=== PATIENT | male | born 1955 | race African-American/Black ===

== ENCOUNTER → 2018-11-27 | Day surgery (SDC) | payer MEDICARE, OTHER ==
[~2018-11-27] MED LIST: CEFAZOLIN 1 GM INJ; DEXTROSE 50% 50 ML SYRINGE; DIPHENHYDRAMINE 50 MG INJ IV; FENTAnyl 50 MCG/ML VIAL; FENTAnyl 50 MCG/ML VIAL IV; GELATIN SIZE 100 SPONGE; HEPARIN 1000 UNITS/ML 10 ML INJ; HYDROmorphONE 1 MG/5 ML IV SYRINGE IV; IPRATROPIUM (NEB) 0.5 MG/2.5 ML AMP HHN; LABETALOL HCL 20MG INJ IV; LEVALBUTEROL (NEB) 1.25 MG/0.5 ML AMP HHN; LIDOCAINE 1% (MPF) 30 ML INJ; METOCLOPRAMIDE 10 MG INJ; MIDAZOLAM 1 MG/ML 2 ML INJ; ONDANSETRON 4 MG INJ; ONDANSETRON 4 MG INJ IV; PHENYLephrine (100 MCG/ML) 10ML SYG; PROPOFOL 20 ML; ROPIVACAINE 0.5 % 30 ML VIAL; SEVOFLURANE 15 MIN; THROMBIN 5000 UNIT VIAL; hydrALAzine 20 MG INJ IV
[2018-11-27] MEDS: DEXTROSE 50% 50 ML SYRINGE IV (07:29)
[2018-11-27 07:34] LABS: ADD MAN DIFF? NO
[2018-11-27 07:35] LABS: BASOPHIL # 0.1 10^3/ul (0.0-0.1); EOSINOPHILS # 0.1 10^3/ul (0.0-0.5); EOSINOPHILS % 0.9 % (0.0-7.0); HEMATOCRIT 34.1 % (42.0-52.0); LYMPHOCYTES # 1.4 10^3/ul (0.8-2.9); LYMPHOCYTES % 23.4 % (15.0-51.0); MEAN CORPUSCULAR HEMOGLOBIN 30.6 pg (29.0-33.0); MEAN CORPUSCULAR HGB CONC 32.3 g/dl (32.0-37.0); MEAN PLATELET VOLUME 10.4 fl (7.4-10.4); MONOCYTE # 0.9 10^3/ul (0.3-0.9); MONOCYTES % 14.8 % (0.0-11.0); NEUTROPHIL # 3.5 10^3/ul (1.6-7.5); NEUTROPHILS % 59.6 % (39.0-77.0); PLATELET COUNT 282 10^3/UL (140-415); RED BLOOD COUNT 3.59 10^6/ul (4.70-6.10); RED CELL DISTRIBUTION WIDTH 13.7 % (11.5-14.5)
[2018-11-27 07:35] LABS: WHITE BLOOD COUNT 5.8 10^3/ul (4.8-10.8)
[2018-11-27] MEDS: HEPARIN 1000 UNITS/ML 10 ML INJ IRR (07:45)
[2018-11-27 07:53] LABS: ALANINE AMINOTRANSFERASE 13 IU/L (13-69); ALBUMIN 4.4 g/dl (3.3-4.9); ALBUMIN/GLOBULIN RATIO 1.12; ALKALINE PHOSPHATASE 118 IU/L (42-121); ANION GAP 11 (5-13); ASPARTATE AMINO TRANSFERASE 24 IU/L (15-46); BILIRUBIN,INDIRECT 0.2 mg/dl (0-1.1); BILIRUBIN,TOTAL 0.2 mg/dl (0.2-1.3); CARBON DIOXIDE 38 mmol/L (21-31); CHLORIDE 92 mmol/L (97-110); Estimated GFR 7 mL/min (>60); GLUCOSE 66 mg/dl (70-220); SODIUM 141 mmol/L (135-144); TOTAL PROTEIN 8.3 g/dl (6.1-8.1)
[2018-11-27 07:58] LABS: INR 0.95; PROTIME 12.8 Sec (11.9-14.9)
[2018-11-27 07:59] LABS: BLOOD UREA NITROGEN 51 mg/dl (7-20); CALCIUM 10.3 mg/dl (8.4-10.2); CREATININE 9.93 mg/dl (0.61-1.24); PARTIAL THROMBOPLASTIN TIME 27.5 Sec (23.0-35.0)
[2018-11-27] MEDS: THROMBIN 5000 UNIT VIAL TOP (09:40)
[2018-11-27] MEDS: GELATIN SIZE 100 SPONGE TOP (09:40)
== END | disposition home or self-care (01) ==
LOC: SDS 06:35
DX: T82.868A Thrombosis due to vascular prosthetic devices, implants and grafts, initial encounter (principal); Y84.1 Kidney dialysis as the cause of abnormal reaction of the patient, or of later complication, without mention of misadventure at the time of the procedure; I12.0 Hypertensive chronic kidney disease with stage 5 chronic kidney disease or end stage renal disease; N18.6 End stage renal disease; E11.9 Type 2 diabetes mellitus without complications
CPT/HCPCS: 36821; 71045; 80053; 82962; 85025; 85610; 85730; 93005

== ENCOUNTER 2019-05-04 20:30 | Inpatient (IN) | payer MEDICARE, OTHER ==
[2019-05-05 03:12] LABS: ADD MAN DIFF? NO
[2019-05-05] MEDS: SOD CHLORIDE 0.9% 500 ML IV (03:17)
[2019-05-05] MEDS: PIPER-TAZO 3.375 GM IV (PMX) 100 ML IVPB (03:17)
[2019-05-05 03:36] LABS: ALANINE AMINOTRANSFERASE 15 IU/L (13-69); ALBUMIN 4.5 g/dl (3.3-4.9); ALBUMIN/GLOBULIN RATIO 1.18; ALKALINE PHOSPHATASE 144 IU/L (42-121); ANION GAP 12 (5-13); ASPARTATE AMINO TRANSFERASE 22 IU/L (15-46); BASOPHIL # 0.1 10^3/ul (0.0-0.1); BASOPHILS % 0.7 % (0.0-2.0); BILIRUBIN,INDIRECT 0.5 mg/dl (0-1.1); BILIRUBIN,TOTAL 0.5 mg/dl (0.2-1.3); BLOOD UREA NITROGEN 51 mg/dl (7-20); CALCIUM 9.1 mg/dl (8.4-10.2); CHLORIDE 88 mmol/L (97-110); CREATININE 9.54 mg/dl (0.61-1.24); EOSINOPHILS # 0.1 10^3/ul (0.0-0.5); EOSINOPHILS % 1.6 % (0.0-7.0); Estimated GFR 7 mL/min (>60); GLUCOSE 211 mg/dl (70-220); HEMATOCRIT 32.5 % (42.0-52.0); LIPASE 245 U/L (23-300); LYMPHOCYTES # 1.8 10^3/ul (0.8-2.9); LYMPHOCYTES % 20.3 % (15.0-51.0); MEAN CORPUSCULAR HEMOGLOBIN 28.6 pg (29.0-33.0); MEAN CORPUSCULAR HGB CONC 30.8 g/dl (32.0-37.0); MEAN CORPUSCULAR VOLUME 92.9 fl (82.0-101.0); MEAN PLATELET VOLUME 10.7 fl (7.4-10.4); MONOCYTE # 1.2 10^3/ul (0.3-0.9); MONOCYTES % 13.4 % (0.0-11.0); NEUTROPHIL # 5.8 10^3/ul (1.6-7.5); NEUTROPHILS % 63.6 % (39.0-77.0); PLATELET COUNT 379 10^3/UL (140-415); POTASSIUM 5.3 mmol/L (3.5-5.1); RED CELL DISTRIBUTION WIDTH 17.2 % (11.5-14.5); SODIUM 140 mmol/L (135-144); TOTAL PROTEIN 8.3 g/dl (6.1-8.1)
[2019-05-05 03:46] LABS: CARBON DIOXIDE 40 mmol/L (21-31)
[2019-05-05] MEDS ORDERED: ONDANSETRON 4 MG INJ IV (04:30)
[2019-05-05] MEDS ORDERED: ACETAMINOPHEN 325 MG TAB PO ×2 (04:30→09:30)
[2019-05-05] MEDS ORDERED: VANCOMYCIN IV PER PHARMACY XX (09:30)
[2019-05-05] MEDS: CLOPIDOGREL 75 MG TAB PO (09:55)
[2019-05-05] MEDS: LEVOFLOXACIN 500 MG TAB PO (09:55)
[2019-05-05] MEDS: MULTIVIT/CA CARB/B CMPLX/FA TAB PO (09:55)
[2019-05-05] MEDS: ZINC SULFATE 220 MG CAP PO (09:55)
[2019-05-05] MEDS: ASPIRIN (EC) 81 MG TAB PO (09:55)
[2019-05-05] MEDS: AMLODIPINE 10 MG TAB PO (09:56)
[2019-05-05] MEDS ORDERED: SEVELAMER 800 MG TAB PO (11:30)
[2019-05-05] MEDS: VANCOMYCIN 1 GM (PMX) 250 ML IVPB (11:47)
[2019-05-05] MEDS: PAROXETINE 10 MG TAB PO (11:47)
[2019-05-05] MEDS: SEVELAMER CARBONATE 800 MG TABLET PO ×2 (11:47→17:49)
[2019-05-05] MEDS: INSULIN ASPART [NOVOLOG] 3 ML PEN SC ×5 (12:10→21:00)
[2019-05-05] MEDS: BACLOFEN 10 MG TAB PO ×2 (12:15→21:39)
[2019-05-05] MEDS ORDERED: GLUCOSE GEL 15 GRAM TUBE BUCCAL (13:00)
[2019-05-05] MEDS: PIPER-TAZO 2.25 GM (PMX) 50 ML IVPB ×2 (13:42→22:45)
[2019-05-05] MEDS ORDERED: INSULIN ASPART [NOVOLOG] 3 ML PEN SC ×2 (17:35→18:05)
[2019-05-05 18:55] LABS: HEPATITIS B SURFACE ANTIGEN NEGATIVE (NEGATIVE)
[2019-05-05] MEDS: EPOETIN ALFA-EPBX (ESRD) 4,000 UNIT/ML VIAL SC (19:02)
[2019-05-05 19:13] LABS: HEPATITIS B SURFACE ANTIBODY POSITIVE (NEGATIVE)
[2019-05-05] MEDS: ATORVASTATIN 80 MG TAB PO (21:39)
[2019-05-05] MEDS: MIRTAZAPINE 15 MG TAB PO (21:39)
[2019-05-05] MEDS: POVIDONE IODINE 10% 28.4 GM OINT TOP (21:53)
[2019-05-05] MEDS: INSULIN GLARGINE [LANTus] (100 UNITS/ML) SYG SC (22:11)
[2019-05-05] MEDS: DAKINS 0.0125%(1/40) 473 ML SOLUTION TP (22:45)
[2019-05-06] MEDS: INSULIN GLARGINE [LANTus] (100 UNITS/ML) SYG SC ×3 (00:15→23:44)
[2019-05-06] MEDS ORDERED: ACCU-CHEK XX (02:00)
[2019-05-06] MEDS: ACCU-CHEK XX (02:00)
[2019-05-06] MEDS: PIPER-TAZO 2.25 GM (PMX) 50 ML IVPB ×3 (05:42→22:44)
[2019-05-06] MEDS: INSULIN ASPART [NOVOLOG] 3 ML PEN SC ×7 (08:00→21:00)
[2019-05-06 08:10] LABS: ADD MAN DIFF? NO
[2019-05-06 08:17] LABS: WHITE BLOOD COUNT 10.3 10^3/ul (4.8-10.8)
[2019-05-06 08:17] LABS: BASOPHIL # 0.1 10^3/ul (0.0-0.1); BASOPHILS % 0.7 % (0.0-2.0); EOSINOPHILS # 0.1 10^3/ul (0.0-0.5); EOSINOPHILS % 0.5 % (0.0-7.0); HEMATOCRIT 26.7 % (42.0-52.0); HEMOGLOBIN 8.3 g/dl (14.0-18.0); LYMPHOCYTES # 1.2 10^3/ul (0.8-2.9); LYMPHOCYTES % 11.4 % (15.0-51.0); MEAN CORPUSCULAR HEMOGLOBIN 28.3 pg (29.0-33.0); MEAN CORPUSCULAR HGB CONC 31.1 g/dl (32.0-37.0); MEAN CORPUSCULAR VOLUME 91.1 fl (82.0-101.0); MEAN PLATELET VOLUME 10.7 fl (7.4-10.4); MONOCYTE # 0.8 10^3/ul (0.3-0.9); MONOCYTES % 8.2 % (0.0-11.0); NEUTROPHIL # 8.1 10^3/ul (1.6-7.5); NEUTROPHILS % 78.8 % (39.0-77.0); PLATELET COUNT 315 10^3/UL (140-415); RED BLOOD COUNT 2.93 10^6/ul (4.70-6.10)
[2019-05-06 08:36] LABS: ANION GAP 13 (5-13); BLOOD UREA NITROGEN 69 mg/dl (7-20); CALCIUM 8.5 mg/dl (8.4-10.2); CARBON DIOXIDE 34 mmol/L (21-31); CHLORIDE 94 mmol/L (97-110); CREATININE 10.98 mg/dl (0.61-1.24); Estimated GFR 6 mL/min (>60); POTASSIUM 5.5 mmol/L (3.5-5.1); SODIUM 141 mmol/L (135-144)
[2019-05-06 08:58] LABS: GLUCOSE 33 mg/dl (70-220)
[2019-05-06] MEDS: AMLODIPINE 10 MG TAB PO (09:00)
[2019-05-06] MEDS ORDERED: MULTIVIT/CA CARB/B CMPLX/FA TAB PO (09:00)
[2019-05-06] MEDS: ASPIRIN (EC) 81 MG TAB PO (09:15)
[2019-05-06] MEDS: ZINC SULFATE 220 MG CAP PO (09:15)
[2019-05-06] MEDS: BACLOFEN 10 MG TAB PO ×4 (09:15→21:01)
[2019-05-06] MEDS: CLOPIDOGREL 75 MG TAB PO (09:15)
[2019-05-06] MEDS: SEVELAMER CARBONATE 800 MG TABLET PO ×3 (09:15→17:26)
[2019-05-06] MEDS: DAKINS 0.0125%(1/40) 473 ML SOLUTION TP ×2 (09:16→22:49)
[2019-05-06] MEDS: PAROXETINE 10 MG TAB PO (09:16)
[2019-05-06] MEDS: MULTIVIT/CA CARB/B CMPLX/FA TAB PO (09:16)
[2019-05-06] MEDS: POVIDONE IODINE 10% 28.4 GM OINT TOP ×2 (09:16→22:50)
[2019-05-06] MEDS: EUCERIN 113 GM CR TOP (12:02)
[2019-05-06] MEDS: HYDROCODONE/APAP (5/325) TAB PO ×2 (13:10→21:50)
[2019-05-06 15:16] LABS: ADD MAN DIFF? NO
[2019-05-06 15:21] LABS: BASOPHIL # 0.1 10^3/ul (0.0-0.1); BASOPHILS % 0.8 % (0.0-2.0); EOSINOPHILS # 0.1 10^3/ul (0.0-0.5); EOSINOPHILS % 0.7 % (0.0-7.0); HEMATOCRIT 27.1 % (42.0-52.0); HEMOGLOBIN 8.4 g/dl (14.0-18.0); LYMPHOCYTES % 11.2 % (15.0-51.0); MEAN CORPUSCULAR HEMOGLOBIN 28.9 pg (29.0-33.0); MEAN CORPUSCULAR VOLUME 93.1 fl (82.0-101.0); MEAN PLATELET VOLUME 10.2 fl (7.4-10.4); MONOCYTE # 0.7 10^3/ul (0.3-0.9); MONOCYTES % 8.3 % (0.0-11.0); NEUTROPHIL # 6.7 10^3/ul (1.6-7.5); NEUTROPHILS % 78.5 % (39.0-77.0); PLATELET COUNT 317 10^3/UL (140-415); RED BLOOD COUNT 2.91 10^6/ul (4.70-6.10); RED CELL DISTRIBUTION WIDTH 17.1 % (11.5-14.5)
[2019-05-06 15:21] LABS: WHITE BLOOD COUNT 8.5 10^3/ul (4.8-10.8)
[2019-05-06 15:38] LABS: INR 1.11; PROTIME 14.4 Sec (11.9-14.9); PT RATIO 1.1
[2019-05-06 15:39] LABS: PARTIAL THROMBOPLASTIN TIME 29.6 Sec (23.0-35.0)
[2019-05-06 15:43] LABS: ALANINE AMINOTRANSFERASE 14 IU/L (13-69); ALBUMIN 3.7 g/dl (3.3-4.9); ALBUMIN/GLOBULIN RATIO 1.08; ALKALINE PHOSPHATASE 87 IU/L (42-121); ANION GAP 9 (5-13); ASPARTATE AMINO TRANSFERASE 27 IU/L (15-46); BILIRUBIN,INDIRECT 0.7 mg/dl (0-1.1); BILIRUBIN,TOTAL 0.7 mg/dl (0.2-1.3); BLOOD UREA NITROGEN 23 mg/dl (7-20); CALCIUM 8.5 mg/dl (8.4-10.2); CARBON DIOXIDE 33 mmol/L (21-31); CHLORIDE 99 mmol/L (97-110); CREATININE 4.79 mg/dl (0.61-1.24); Estimated GFR 15 mL/min (>60); GLUCOSE 94 mg/dl (70-220); POTASSIUM 4.4 mmol/L (3.5-5.1); SODIUM 141 mmol/L (135-144); TOTAL PROTEIN 7.1 g/dl (6.1-8.1)
[2019-05-06] MEDS: GLUCOSE GEL 15 GRAM TUBE PO ×5 (20:15→23:35)
[2019-05-06 20:45] LABS: TROPONIN-I < 0.012 ng/ml (0.000-0.120)
[2019-05-06] MEDS ORDERED: HEPARIN 5,000 UNIT/1 ML VIAL SC (21:00)
[2019-05-06] MEDS: MIRTAZAPINE 15 MG TAB PO (21:01)
[2019-05-06] MEDS: ATORVASTATIN 80 MG TAB PO (21:01)
[2019-05-06] MEDS: hydrALAzine 20 MG INJ IV (21:06)
[2019-05-06 22:02] LABS: GLUCOSE 45 mg/dl (70-220)
[2019-05-06] MEDS: DEXTROSE 5%-0.9% NACL 1,000 ML IV (23:46)
[2019-05-07 01:39] LABS: GLUCOSE 78 mg/dl (70-220)
[2019-05-07 01:54] LABS: TROPONIN-I < 0.012 ng/ml (0.000-0.120)
[2019-05-07] MEDS: ACCU-CHEK XX (02:00)
[2019-05-07 05:35] LABS: ADD MAN DIFF? NO
[2019-05-07 05:41] LABS: BASOPHIL # 0.1 10^3/ul (0.0-0.1); BASOPHILS % 0.6 % (0.0-2.0); EOSINOPHILS % 0.3 % (0.0-7.0); HEMATOCRIT 29.7 % (42.0-52.0); HEMOGLOBIN 9.2 g/dl (14.0-18.0); LYMPHOCYTES % 9.2 % (15.0-51.0); MEAN CORPUSCULAR HEMOGLOBIN 28.8 pg (29.0-33.0); MEAN CORPUSCULAR VOLUME 92.8 fl (82.0-101.0); MEAN PLATELET VOLUME 10.5 fl (7.4-10.4); MONOCYTE # 0.9 10^3/ul (0.3-0.9); NEUTROPHIL # 8.7 10^3/ul (1.6-7.5); NEUTROPHILS % 81.2 % (39.0-77.0); PLATELET COUNT 344 10^3/UL (140-415); RED CELL DISTRIBUTION WIDTH 17.1 % (11.5-14.5)
[2019-05-07 05:41] LABS: WHITE BLOOD COUNT 10.7 10^3/ul (4.8-10.8)
[2019-05-07] MEDS: PIPER-TAZO 2.25 GM (PMX) 50 ML IVPB (05:47)
[2019-05-07 05:58] LABS: ANION GAP 10 (5-13); BLOOD UREA NITROGEN 39 mg/dl (7-20); CALCIUM 8.6 mg/dl (8.4-10.2); CARBON DIOXIDE 33 mmol/L (21-31); CHLORIDE 96 mmol/L (97-110); CREATININE 7.09 mg/dl (0.61-1.24); Estimated GFR 10 mL/min (>60); GLUCOSE 120 mg/dl (70-220); POTASSIUM 5.5 mmol/L (3.5-5.1); SODIUM 139 mmol/L (135-144)
[2019-05-07 06:08] LABS: VANCOMYCIN,RANDOM 8.4 ug/ml
[2019-05-07 06:10] LABS: CHOLESTEROL 89 mg/dl (100-200)
[2019-05-07 06:10] LABS: CHOL/HDL RATIO 2.1 RATIO; HDL CHOLESTEROL 42 mg/dl (30-78); LDL CHOLESTEROL,CALCULATED 38 mg/dl; TRIGLYCERIDES 46 mg/dl (0-149)
[2019-05-07 06:16] LABS: TROPONIN-I < 0.012 ng/ml (0.000-0.120)
[2019-05-07] MEDS: SEVELAMER CARBONATE 800 MG TABLET PO ×3 (07:35→17:35)
[2019-05-07] MEDS: INSULIN ASPART [NOVOLOG] 3 ML PEN SC ×7 (07:35→20:56)
[2019-05-07] MEDS: LEVOFLOXACIN 500 MG TAB PO (08:16)
[2019-05-07] MEDS: ZINC SULFATE 220 MG CAP PO ×2 (09:00→12:59)
[2019-05-07] MEDS: MULTIVIT/CA CARB/B CMPLX/FA TAB PO ×2 (09:00→12:59)
[2019-05-07] MEDS: BACLOFEN 10 MG TAB PO ×3 (09:01→20:57)
[2019-05-07] MEDS: CLOPIDOGREL 75 MG TAB PO (09:01)
[2019-05-07] MEDS: AMLODIPINE 10 MG TAB PO (09:01)
[2019-05-07] MEDS: ASPIRIN (EC) 81 MG TAB PO (09:01)
[2019-05-07] MEDS: PAROXETINE 10 MG TAB PO (09:01)
[2019-05-07] MEDS: DAKINS 0.0125%(1/40) 473 ML SOLUTION TP ×2 (10:18→21:03)
[2019-05-07] MEDS: POVIDONE IODINE 10% 28.4 GM OINT TOP ×2 (10:18→21:04)
[2019-05-07] MEDS: VANCOMYCIN 1 GM 250 ML IVPB (11:39)
[2019-05-07] MEDS: EUCERIN 113 GM CR TOP (11:39)
[2019-05-07] MEDS: EPOETIN ALFA-EPBX (ESRD) 4,000 UNIT/ML VIAL SC (17:31)
[2019-05-07] MEDS: HYDROCODONE/APAP (5/325) TAB PO (18:00)
[2019-05-07] MEDS: MIRTAZAPINE 15 MG TAB PO (20:57)
[2019-05-07] MEDS: INSULIN GLARGINE [LANTus] (100 UNITS/ML) SYG SC (20:57)
[2019-05-07] MEDS: ATORVASTATIN 80 MG TAB PO (20:57)
[2019-05-07] MEDS: METOPROLOL 25 MG TAB PO (20:58)
[2019-05-07] MEDS: DEXTROSE 5%-0.9% NACL 1,000 ML IV (22:24)
[2019-05-08] MEDS: ACCU-CHEK XX (02:00)
[2019-05-08] MEDS: hydrALAzine 20 MG INJ IV (03:13)
[2019-05-08 06:10] LABS: ADD MAN DIFF? NO
[2019-05-08 06:23] LABS: WHITE BLOOD COUNT 9.1 10^3/ul (4.8-10.8)
[2019-05-08 06:23] LABS: BASOPHIL # 0.1 10^3/ul (0.0-0.1); BASOPHILS % 1.2 % (0.0-2.0); EOSINOPHILS # 0.1 10^3/ul (0.0-0.5); EOSINOPHILS % 1.2 % (0.0-7.0); HEMATOCRIT 30.4 % (42.0-52.0); HEMOGLOBIN 9.2 g/dl (14.0-18.0); LYMPHOCYTES # 1.3 10^3/ul (0.8-2.9); LYMPHOCYTES % 14.7 % (15.0-51.0); MEAN CORPUSCULAR HEMOGLOBIN 28.1 pg (29.0-33.0); MEAN CORPUSCULAR HGB CONC 30.3 g/dl (32.0-37.0); MEAN PLATELET VOLUME 10.3 fl (7.4-10.4); MONOCYTE # 1.2 10^3/ul (0.3-0.9); MONOCYTES % 13.2 % (0.0-11.0); NEUTROPHIL # 6.3 10^3/ul (1.6-7.5); NEUTROPHILS % 69.4 % (39.0-77.0); PLATELET COUNT 297 10^3/UL (140-415); RED BLOOD COUNT 3.27 10^6/ul (4.70-6.10); RED CELL DISTRIBUTION WIDTH 17.1 % (11.5-14.5)
[2019-05-08 07:18] LABS: ANION GAP 9 (5-13); BLOOD UREA NITROGEN 22 mg/dl (7-20); CALCIUM 8.7 mg/dl (8.4-10.2); CARBON DIOXIDE 30 mmol/L (21-31); CHLORIDE 100 mmol/L (97-110); CREATININE 5.52 mg/dl (0.61-1.24); Estimated GFR 13 mL/min (>60); GLUCOSE 121 mg/dl (70-220); POTASSIUM 5.5 mmol/L (3.5-5.1); SODIUM 139 mmol/L (135-144)
[2019-05-08] MEDS: INSULIN ASPART [NOVOLOG] 3 ML PEN SC ×7 (08:06→21:00)
[2019-05-08] MEDS: SEVELAMER CARBONATE 800 MG TABLET PO ×3 (08:07→17:33)
[2019-05-08] MEDS: METOPROLOL 25 MG TAB PO ×2 (08:26→21:29)
[2019-05-08] MEDS: MULTIVIT/CA CARB/B CMPLX/FA TAB PO (08:27)
[2019-05-08] MEDS: PAROXETINE 10 MG TAB PO (08:27)
[2019-05-08] MEDS: BACLOFEN 10 MG TAB PO ×3 (08:27→21:28)
[2019-05-08] MEDS: ZINC SULFATE 220 MG CAP PO (08:27)
[2019-05-08] MEDS: CLOPIDOGREL 75 MG TAB PO (08:27)
[2019-05-08] MEDS: ASPIRIN (EC) 81 MG TAB PO (08:27)
[2019-05-08] MEDS: AMLODIPINE 10 MG TAB PO (08:27)
[2019-05-08] MEDS: EUCERIN 113 GM CR TOP (08:35)
[2019-05-08] MEDS: DAKINS 0.0125%(1/40) 473 ML SOLUTION TP ×2 (08:36→21:30)
[2019-05-08] MEDS: POVIDONE IODINE 10% 28.4 GM OINT TOP ×2 (08:36→21:29)
[2019-05-08] MEDS: LISINOPRIL 20 MG TAB PO (08:39)
[2019-05-08] MEDS: DEXTROSE 5%-0.45% NACL 1,000 ML IV (13:41)
[2019-05-08] MEDS: ONDANSETRON 4 MG INJ IV (15:23)
[2019-05-08 17:19] LABS: ADD MAN DIFF? NO
[2019-05-08 17:22] LABS: WHITE BLOOD COUNT 9.1 10^3/ul (4.8-10.8)
[2019-05-08 17:22] LABS: BASOPHIL # 0.1 10^3/ul (0.0-0.1); BASOPHILS % 1.1 % (0.0-2.0); EOSINOPHILS % 0.3 % (0.0-7.0); HEMATOCRIT 26.3 % (42.0-52.0); HEMOGLOBIN 8.2 g/dl (14.0-18.0); LYMPHOCYTES # 0.8 10^3/ul (0.8-2.9); LYMPHOCYTES % 9.2 % (15.0-51.0); MEAN CORPUSCULAR HEMOGLOBIN 28.8 pg (29.0-33.0); MEAN CORPUSCULAR HGB CONC 31.2 g/dl (32.0-37.0); MEAN CORPUSCULAR VOLUME 92.3 fl (82.0-101.0); MEAN PLATELET VOLUME 9.6 fl (7.4-10.4); MONOCYTE # 0.8 10^3/ul (0.3-0.9); MONOCYTES % 8.4 % (0.0-11.0); NEUTROPHIL # 7.3 10^3/ul (1.6-7.5); NEUTROPHILS % 80.7 % (39.0-77.0); PLATELET COUNT 282 10^3/UL (140-415); RED BLOOD COUNT 2.85 10^6/ul (4.70-6.10); RED CELL DISTRIBUTION WIDTH 16.7 % (11.5-14.5)
[2019-05-08 17:53] LABS: TROPONIN-I < 0.012 ng/ml (0.000-0.120)
[2019-05-08 19:03] LABS: ALANINE AMINOTRANSFERASE 30 IU/L (13-69); ALBUMIN 3.1 g/dl (3.3-4.9); ALBUMIN/GLOBULIN RATIO 1.03; ALKALINE PHOSPHATASE 89 IU/L (42-121); ANION GAP 10 (5-13); ASPARTATE AMINO TRANSFERASE 17 IU/L (15-46); BILIRUBIN,INDIRECT 0.5 mg/dl (0-1.1); BILIRUBIN,TOTAL 0.5 mg/dl (0.2-1.3); BLOOD UREA NITROGEN 20 mg/dl (7-20); CALCIUM 8.5 mg/dl (8.4-10.2); CARBON DIOXIDE 28 mmol/L (21-31); CHLORIDE 101 mmol/L (97-110); CREATININE 4.86 mg/dl (0.61-1.24); Estimated GFR 15 mL/min (>60); GLUCOSE 166 mg/dl (70-220); POTASSIUM 4.4 mmol/L (3.5-5.1); SODIUM 139 mmol/L (135-144); TOTAL PROTEIN 6.1 g/dl (6.1-8.1)
[2019-05-08] MEDS: MIRTAZAPINE 15 MG TAB PO (21:28)
[2019-05-08] MEDS: ATORVASTATIN 80 MG TAB PO (21:28)
[2019-05-08] MEDS: INSULIN GLARGINE [LANTus] (100 UNITS/ML) SYG SC (22:31)
[2019-05-08 23:14] LABS: LACTIC ACID 1.5 mmol/L (0.5-2.0)
[2019-05-09] MEDS: HYDROCODONE/APAP (5/325) TAB PO
[2019-05-09] MEDS: ACCU-CHEK XX ×3 (02:00→21:45)
[2019-05-09 06:10] LABS: ADD MAN DIFF? NO
[2019-05-09 06:32] LABS: BASOPHIL # 0.1 10^3/ul (0.0-0.1); BASOPHILS % 1.5 % (0.0-2.0); EOSINOPHILS # 0.1 10^3/ul (0.0-0.5); EOSINOPHILS % 1.1 % (0.0-7.0); HEMATOCRIT 28.2 % (42.0-52.0); HEMOGLOBIN 8.7 g/dl (14.0-18.0); LYMPHOCYTES % 14.1 % (15.0-51.0); MEAN CORPUSCULAR HEMOGLOBIN 28.3 pg (29.0-33.0); MEAN CORPUSCULAR HGB CONC 30.9 g/dl (32.0-37.0); MEAN CORPUSCULAR VOLUME 91.9 fl (82.0-101.0); MEAN PLATELET VOLUME 10.5 fl (7.4-10.4); NEUTROPHIL # 5.2 10^3/ul (1.6-7.5); NEUTROPHILS % 69.9 % (39.0-77.0); PLATELET COUNT 310 10^3/UL (140-415); RED BLOOD COUNT 3.07 10^6/ul (4.70-6.10); RED CELL DISTRIBUTION WIDTH 16.8 % (11.5-14.5)
[2019-05-09 06:32] LABS: WHITE BLOOD COUNT 7.4 10^3/ul (4.8-10.8)
[2019-05-09 06:52] LABS: ANION GAP 6 (5-13); BLOOD UREA NITROGEN 17 mg/dl (7-20); CALCIUM 8.6 mg/dl (8.4-10.2); CARBON DIOXIDE 32 mmol/L (21-31); CHLORIDE 100 mmol/L (97-110); Estimated GFR 15 mL/min (>60); POTASSIUM 4.3 mmol/L (3.5-5.1); SODIUM 138 mmol/L (135-144)
[2019-05-09 07:05] LABS: GLUCOSE 38 mg/dl (70-220)
[2019-05-09 07:07] LABS: CHOL/HDL RATIO 2.1 RATIO; HDL CHOLESTEROL 39 mg/dl (30-78); LDL CHOLESTEROL,CALCULATED 39 mg/dl; TRIGLYCERIDES 37 mg/dl (0-149)
[2019-05-09 07:07] LABS: CHOLESTEROL 85 mg/dl (100-200)
[2019-05-09] MEDS: DEXTROSE 50% 50 ML SYRINGE IV (07:09)
[2019-05-09] MEDS: INSULIN ASPART [NOVOLOG] 3 ML PEN SC ×6 (08:15→21:00)
[2019-05-09] MEDS: SEVELAMER CARBONATE 800 MG TABLET PO ×3 (08:40→17:02)
[2019-05-09] MEDS: LEVOFLOXACIN 500 MG TAB PO (08:40)
[2019-05-09] MEDS: CLOPIDOGREL 75 MG TAB PO (08:40)
[2019-05-09] MEDS: ZINC SULFATE 220 MG CAP PO (08:40)
[2019-05-09] MEDS: BACLOFEN 10 MG TAB PO ×3 (08:41→21:39)
[2019-05-09] MEDS: PAROXETINE 10 MG TAB PO (08:41)
[2019-05-09] MEDS: ASPIRIN (EC) 81 MG TAB PO (08:41)
[2019-05-09] MEDS: METOPROLOL 25 MG TAB PO (08:41)
[2019-05-09] MEDS: AMLODIPINE 10 MG TAB PO (08:41)
[2019-05-09] MEDS: MULTIVIT/CA CARB/B CMPLX/FA TAB PO (08:41)
[2019-05-09] MEDS: EUCERIN 113 GM CR TOP (08:42)
[2019-05-09] MEDS: LISINOPRIL 20 MG TAB PO (08:43)
[2019-05-09] MEDS: POVIDONE IODINE 10% 28.4 GM OINT TOP ×2 (08:43→21:45)
[2019-05-09] MEDS: DAKINS 0.0125%(1/40) 473 ML SOLUTION TP ×2 (08:44→21:45)
[2019-05-09] MEDS: DEXTROSE 5%-0.45% NACL 1,000 ML IV (08:46)
[2019-05-09] MEDS: LINAGLIPTIN 5 MG TABLET PO (15:26)
[2019-05-09] MEDS: MIRTAZAPINE 15 MG TAB PO (21:39)
[2019-05-09] MEDS: ATORVASTATIN 80 MG TAB PO (21:39)
[2019-05-09] MEDS: METOPROLOL 50 MG TAB PO (21:40)
[2019-05-09] MEDS: BROMOCRIPTINE 2.5 MG TAB PO (21:48)
[2019-05-09] MEDS: INSULIN GLARGINE [LANTus] (100 UNITS/ML) SYG SC (21:59)
[2019-05-10] MEDS: ACCU-CHEK XX ×7 (02:00→20:35)
[2019-05-10] MEDS: ONDANSETRON 4 MG INJ IV (05:05)
[2019-05-10 06:56] LABS: VANCOMYCIN,RANDOM 12.3 ug/ml
[2019-05-10] MEDS: DEXTROSE 5%-0.45% NACL 1,000 ML IV (07:00)
[2019-05-10] MEDS: SEVELAMER CARBONATE 800 MG TABLET PO ×3 (08:00→16:04)
[2019-05-10] MEDS: AMLODIPINE 5 MG TAB PO (08:07)
[2019-05-10] MEDS: MULTIVIT/CA CARB/B CMPLX/FA TAB PO (08:07)
[2019-05-10] MEDS: METOPROLOL 50 MG TAB PO ×2 (08:07→20:27)
[2019-05-10] MEDS: BACLOFEN 10 MG TAB PO ×3 (08:07→20:26)
[2019-05-10] MEDS: PAROXETINE 10 MG TAB PO (08:07)
[2019-05-10] MEDS: LISINOPRIL 20 MG TAB PO (08:07)
[2019-05-10] MEDS: ASPIRIN (EC) 81 MG TAB PO (08:07)
[2019-05-10] MEDS: LINAGLIPTIN 5 MG TABLET PO (08:07)
[2019-05-10] MEDS: CLOPIDOGREL 75 MG TAB PO (08:07)
[2019-05-10] MEDS: ZINC SULFATE 220 MG CAP PO (08:08)
[2019-05-10] MEDS: EUCERIN 113 GM CR TOP (08:09)
[2019-05-10] MEDS: POVIDONE IODINE 10% 28.4 GM OINT TOP ×2 (08:09→20:33)
[2019-05-10] MEDS: DAKINS 0.0125%(1/40) 473 ML SOLUTION TP ×2 (08:09→20:27)
[2019-05-10] MEDS: INSULIN ASPART [NOVOLOG] 3 ML PEN SC ×4 (08:11→21:00)
[2019-05-10] MEDS: VANCOMYCIN 1 GM 250 ML IVPB (11:53)
[2019-05-10] MEDS: EPOETIN ALFA-EPBX (ESRD) 4,000 UNIT/ML VIAL SC (16:05)
[2019-05-10] MEDS: MIRTAZAPINE 15 MG TAB PO (20:26)
[2019-05-10] MEDS: BROMOCRIPTINE 2.5 MG TAB PO (20:26)
[2019-05-10] MEDS: ATORVASTATIN 80 MG TAB PO (20:26)
[2019-05-10] MEDS: INSULIN GLARGINE [LANTus] (100 UNITS/ML) SYG SC (21:14)
[2019-05-11] MEDS: DEXTROSE 5%-0.45% NACL 1,000 ML IV (01:30)
[2019-05-11] MEDS: ACCU-CHEK XX ×7 (02:00→20:22)
[2019-05-11 05:50] LABS: ADD MAN DIFF? NO
[2019-05-11 05:55] LABS: BASOPHIL # 0.1 10^3/ul (0.0-0.1); BASOPHILS % 1.8 % (0.0-2.0); EOSINOPHILS # 0.1 10^3/ul (0.0-0.5); HEMATOCRIT 26.4 % (42.0-52.0); HEMOGLOBIN 8.1 g/dl (14.0-18.0); LYMPHOCYTES # 0.9 10^3/ul (0.8-2.9); LYMPHOCYTES % 14.7 % (15.0-51.0); MEAN CORPUSCULAR HEMOGLOBIN 28.3 pg (29.0-33.0); MEAN CORPUSCULAR HGB CONC 30.7 g/dl (32.0-37.0); MEAN CORPUSCULAR VOLUME 92.3 fl (82.0-101.0); MEAN PLATELET VOLUME 10.5 fl (7.4-10.4); MONOCYTES % 16.5 % (0.0-11.0); NEUTROPHILS % 65.8 % (39.0-77.0); PLATELET COUNT 288 10^3/UL (140-415); RED BLOOD COUNT 2.86 10^6/ul (4.70-6.10); RED CELL DISTRIBUTION WIDTH 17.1 % (11.5-14.5)
[2019-05-11 05:59] LABS: ANION GAP 8 (5-13); BLOOD UREA NITROGEN 17 mg/dl (7-20); CALCIUM 8.1 mg/dl (8.4-10.2); CARBON DIOXIDE 30 mmol/L (21-31); CHLORIDE 100 mmol/L (97-110); CREATININE 5.34 mg/dl (0.61-1.24); Estimated GFR 13 mL/min (>60); GLUCOSE 209 mg/dl (70-220); POTASSIUM 4.4 mmol/L (3.5-5.1); SODIUM 138 mmol/L (135-144)
[2019-05-11] MEDS: INSULIN ASPART [NOVOLOG] 3 ML PEN SC ×4 (08:29→20:23)
[2019-05-11] MEDS: ASPIRIN (EC) 81 MG TAB PO (08:42)
[2019-05-11] MEDS: CLOPIDOGREL 75 MG TAB PO (08:42)
[2019-05-11] MEDS: AMLODIPINE 5 MG TAB PO (08:42)
[2019-05-11] MEDS: MULTIVIT/CA CARB/B CMPLX/FA TAB PO (08:42)
[2019-05-11] MEDS: SEVELAMER CARBONATE 800 MG TABLET PO ×3 (08:42→17:18)
[2019-05-11] MEDS: METOPROLOL 50 MG TAB PO ×2 (08:43→20:22)
[2019-05-11] MEDS: BACLOFEN 10 MG TAB PO ×3 (08:43→20:22)
[2019-05-11] MEDS: ZINC SULFATE 220 MG CAP PO (08:43)
[2019-05-11] MEDS: LINAGLIPTIN 5 MG TABLET PO (08:43)
[2019-05-11] MEDS: LISINOPRIL 20 MG TAB PO (08:43)
[2019-05-11] MEDS: LEVOFLOXACIN 500 MG TAB PO (08:43)
[2019-05-11] MEDS: PAROXETINE 10 MG TAB PO (08:43)
[2019-05-11] MEDS: DAKINS 0.0125%(1/40) 473 ML SOLUTION TP ×2 (08:44→20:23)
[2019-05-11] MEDS: EUCERIN 113 GM CR TOP (08:44)
[2019-05-11] MEDS: POVIDONE IODINE 10% 28.4 GM OINT TOP ×2 (08:44→20:23)
[2019-05-11] MEDS: MIRTAZAPINE 15 MG TAB PO (20:22)
[2019-05-11] MEDS: ATORVASTATIN 80 MG TAB PO (20:22)
[2019-05-11] MEDS: BROMOCRIPTINE 2.5 MG TAB PO (20:22)
[2019-05-11] MEDS: INSULIN GLARGINE [LANTus] (100 UNITS/ML) SYG SC (20:35)
[2019-05-12] MEDS: ACCU-CHEK XX ×7 (02:00→20:00)
[2019-05-12 06:22] LABS: ADD MAN DIFF? NO
[2019-05-12 06:37] LABS: BASOPHIL # 0.1 10^3/ul (0.0-0.1); BASOPHILS % 1.1 % (0.0-2.0); EOSINOPHILS # 0.1 10^3/ul (0.0-0.5); EOSINOPHILS % 1.1 % (0.0-7.0); HEMATOCRIT 24.7 % (42.0-52.0); HEMOGLOBIN 7.8 g/dl (14.0-18.0); LYMPHOCYTES # 0.9 10^3/ul (0.8-2.9); LYMPHOCYTES % 13.2 % (15.0-51.0); MEAN CORPUSCULAR HEMOGLOBIN 29.2 pg (29.0-33.0); MEAN CORPUSCULAR HGB CONC 31.6 g/dl (32.0-37.0); MEAN CORPUSCULAR VOLUME 92.5 fl (82.0-101.0); MEAN PLATELET VOLUME 10.8 fl (7.4-10.4); MONOCYTES % 15.8 % (0.0-11.0); NEUTROPHIL # 4.4 10^3/ul (1.6-7.5); NEUTROPHILS % 68.6 % (39.0-77.0); PLATELET COUNT 282 10^3/UL (140-415); RED BLOOD COUNT 2.67 10^6/ul (4.70-6.10); RED CELL DISTRIBUTION WIDTH 16.7 % (11.5-14.5)
[2019-05-12 06:37] LABS: WHITE BLOOD COUNT 6.4 10^3/ul (4.8-10.8)
[2019-05-12 06:41] LABS: ANION GAP 9 (5-13); BLOOD UREA NITROGEN 32 mg/dl (7-20); CALCIUM 8.2 mg/dl (8.4-10.2); CARBON DIOXIDE 29 mmol/L (21-31); CHLORIDE 99 mmol/L (97-110); CREATININE 7.76 mg/dl (0.61-1.24); Estimated GFR 9 mL/min (>60); GLUCOSE 132 mg/dl (70-220); POTASSIUM 4.7 mmol/L (3.5-5.1); SODIUM 137 mmol/L (135-144)
[2019-05-12] MEDS: INSULIN ASPART [NOVOLOG] 3 ML PEN SC ×4 (07:39→20:37)
[2019-05-12] MEDS: SEVELAMER CARBONATE 800 MG TABLET PO ×3 (07:39→17:29)
[2019-05-12] MEDS: LINAGLIPTIN 5 MG TABLET PO (08:40)
[2019-05-12] MEDS: ASPIRIN (EC) 81 MG TAB PO (08:41)
[2019-05-12] MEDS: BACLOFEN 10 MG TAB PO ×3 (08:41→20:16)
[2019-05-12] MEDS: PAROXETINE 10 MG TAB PO (08:41)
[2019-05-12] MEDS: ZINC SULFATE 220 MG CAP PO (08:41)
[2019-05-12] MEDS: MULTIVIT/CA CARB/B CMPLX/FA TAB PO (08:41)
[2019-05-12] MEDS: CLOPIDOGREL 75 MG TAB PO (08:41)
[2019-05-12] MEDS: EUCERIN 113 GM CR TOP (08:42)
[2019-05-12] MEDS: DAKINS 0.0125%(1/40) 473 ML SOLUTION TP ×2 (08:42→20:40)
[2019-05-12] MEDS: POVIDONE IODINE 10% 28.4 GM OINT TOP ×2 (08:43→20:40)
[2019-05-12] MEDS: METOPROLOL 50 MG TAB PO ×3 (08:49→20:17)
[2019-05-12] MEDS: AMLODIPINE 5 MG TAB PO ×2 (08:49→13:03)
[2019-05-12] MEDS: LISINOPRIL 20 MG TAB PO ×2 (08:50→13:02)
[2019-05-12] MEDS: EPOETIN ALFA-EPBX (ESRD) 4,000 UNIT/ML VIAL SC (17:01)
[2019-05-12] MEDS: ATORVASTATIN 80 MG TAB PO (20:16)
[2019-05-12] MEDS: MIRTAZAPINE 15 MG TAB PO (20:16)
[2019-05-12] MEDS: BROMOCRIPTINE 2.5 MG TAB PO (20:16)
[2019-05-12] MEDS: INSULIN GLARGINE [LANTus] (100 UNITS/ML) SYG SC (20:37)
[2019-05-13] MEDS: ACCU-CHEK XX ×7 (02:00→20:51)
[2019-05-13] MEDS: INSULIN ASPART [NOVOLOG] 3 ML PEN SC ×4 (08:00→20:52)
[2019-05-13] MEDS: LINAGLIPTIN 5 MG TABLET PO (08:44)
[2019-05-13] MEDS: ZINC SULFATE 220 MG CAP PO (08:44)
[2019-05-13] MEDS: LEVOFLOXACIN 500 MG TAB PO (08:44)
[2019-05-13] MEDS: BACLOFEN 10 MG TAB PO ×3 (08:44→20:51)
[2019-05-13] MEDS: PAROXETINE 10 MG TAB PO (08:44)
[2019-05-13] MEDS: MULTIVIT/CA CARB/B CMPLX/FA TAB PO (08:44)
[2019-05-13] MEDS: ASPIRIN (EC) 81 MG TAB PO (08:44)
[2019-05-13] MEDS: CLOPIDOGREL 75 MG TAB PO (08:44)
[2019-05-13] MEDS: SEVELAMER CARBONATE 800 MG TABLET PO ×3 (08:44→17:31)
[2019-05-13] MEDS: AMLODIPINE 5 MG TAB PO (08:45)
[2019-05-13] MEDS: METOPROLOL 50 MG TAB PO (08:45)
[2019-05-13] MEDS: LISINOPRIL 20 MG TAB PO (08:46)
[2019-05-13] MEDS: DAKINS 0.0125%(1/40) 473 ML SOLUTION TP ×2 (08:46→20:53)
[2019-05-13] MEDS: EUCERIN 113 GM CR TOP (08:46)
[2019-05-13] MEDS: POVIDONE IODINE 10% 28.4 GM OINT TOP ×2 (08:47→20:52)
[2019-05-13] MEDS: ATORVASTATIN 80 MG TAB PO (20:51)
[2019-05-13] MEDS: MIRTAZAPINE 15 MG TAB PO (20:52)
[2019-05-13] MEDS: BROMOCRIPTINE 2.5 MG TAB PO (20:53)
[2019-05-13] MEDS: INSULIN GLARGINE [LANTus] (100 UNITS/ML) SYG SC (20:56)
[2019-05-13] MEDS: METOPROLOL 100 MG TAB PO (20:58)
[2019-05-14] MEDS: ACCU-CHEK XX ×7 (02:00→20:20)
[2019-05-14] MEDS: INSULIN ASPART [NOVOLOG] 3 ML PEN SC ×4 (07:57→20:26)
[2019-05-14] MEDS: SEVELAMER CARBONATE 800 MG TABLET PO ×3 (08:14→17:41)
[2019-05-14] MEDS: BACLOFEN 10 MG TAB PO ×4 (09:00→20:20)
[2019-05-14] MEDS: ZINC SULFATE 220 MG CAP PO (11:58)
[2019-05-14] MEDS: ASPIRIN (EC) 81 MG TAB PO (11:59)
[2019-05-14] MEDS: CLOPIDOGREL 75 MG TAB PO (11:59)
[2019-05-14] MEDS: AMLODIPINE 5 MG TAB PO (11:59)
[2019-05-14] MEDS: METOPROLOL 100 MG TAB PO ×2 (12:00→20:21)
[2019-05-14] MEDS: POVIDONE IODINE 10% 28.4 GM OINT TOP ×2 (12:00→21:00)
[2019-05-14] MEDS: LISINOPRIL 20 MG TAB PO (12:00)
[2019-05-14] MEDS: LINAGLIPTIN 5 MG TABLET PO (12:00)
[2019-05-14] MEDS: PAROXETINE 10 MG TAB PO (12:01)
[2019-05-14] MEDS: MULTIVIT/CA CARB/B CMPLX/FA TAB PO (12:01)
[2019-05-14] MEDS: EUCERIN 113 GM CR TOP (12:02)
[2019-05-14] MEDS: DAKINS 0.0125%(1/40) 473 ML SOLUTION TP ×2 (12:03→20:25)
[2019-05-14] MEDS: VANCOMYCIN 1 GM 250 ML IVPB (12:03)
[2019-05-14] MEDS: EPOETIN ALFA-EPBX (ESRD) 4,000 UNIT/ML VIAL SC (17:43)
[2019-05-14] MEDS: ATORVASTATIN 80 MG TAB PO (20:20)
[2019-05-14] MEDS: MIRTAZAPINE 15 MG TAB PO (20:21)
[2019-05-14] MEDS: BROMOCRIPTINE 2.5 MG TAB PO (20:21)
[2019-05-14] MEDS: INSULIN GLARGINE [LANTus] (100 UNITS/ML) SYG SC (21:00)
[2019-05-15] MEDS: ACCU-CHEK XX ×7 (02:03→20:18)
[2019-05-15] MEDS: POVIDONE IODINE 10% 28.4 GM OINT TOP ×3 (02:09→20:20)
[2019-05-15 05:56] LABS: ADD MAN DIFF? NO
[2019-05-15 06:02] LABS: ABNORMAL IP MESSAGE 1; BASOPHIL # 0.1 10^3/ul (0.0-0.1); BASOPHILS % 0.7 % (0.0-2.0); EOSINOPHILS # 0.1 10^3/ul (0.0-0.5); EOSINOPHILS % 0.7 % (0.0-7.0); HEMATOCRIT 29.6 % (42.0-52.0); HEMOGLOBIN 9.2 g/dl (14.0-18.0); LYMPHOCYTES # 0.9 10^3/ul (0.8-2.9); LYMPHOCYTES % 9.2 % (15.0-51.0); MEAN CORPUSCULAR HEMOGLOBIN 28.2 pg (29.0-33.0); MEAN CORPUSCULAR HGB CONC 31.1 g/dl (32.0-37.0); MEAN CORPUSCULAR VOLUME 90.8 fl (82.0-101.0); MONOCYTE # 1.6 10^3/ul (0.3-0.9); MONOCYTES % 16.5 % (0.0-11.0); NEUTROPHIL # 6.8 10^3/ul (1.6-7.5); NEUTROPHILS % 72.7 % (39.0-77.0); PLATELET COUNT 335 10^3/UL (140-415); POSITIVE DIFF @See below; RED BLOOD COUNT 3.26 10^6/ul (4.70-6.10); RED CELL DISTRIBUTION WIDTH 16.2 % (11.5-14.5)
[2019-05-15 06:02] LABS: WHITE BLOOD COUNT 9.4 10^3/ul (4.8-10.8)
[2019-05-15] MEDS: INSULIN ASPART [NOVOLOG] 3 ML PEN SC ×4 (07:34→20:31)
[2019-05-15] MEDS: SEVELAMER CARBONATE 800 MG TABLET PO ×3 (07:48→17:28)
[2019-05-15] MEDS: LEVOFLOXACIN 500 MG TAB PO (07:48)
[2019-05-15] MEDS: BACLOFEN 10 MG TAB PO ×3 (08:22→20:18)
[2019-05-15] MEDS: LINAGLIPTIN 5 MG TABLET PO (08:22)
[2019-05-15] MEDS: MULTIVIT/CA CARB/B CMPLX/FA TAB PO (08:22)
[2019-05-15] MEDS: PAROXETINE 10 MG TAB PO (08:22)
[2019-05-15] MEDS: ZINC SULFATE 220 MG CAP PO (08:22)
[2019-05-15] MEDS: ASPIRIN (EC) 81 MG TAB PO (08:22)
[2019-05-15] MEDS: CLOPIDOGREL 75 MG TAB PO (08:22)
[2019-05-15] MEDS: AMLODIPINE 5 MG TAB PO (08:23)
[2019-05-15] MEDS: LISINOPRIL 20 MG TAB PO (08:23)
[2019-05-15] MEDS: METOPROLOL 100 MG TAB PO ×2 (08:23→20:20)
[2019-05-15] MEDS: DAKINS 0.0125%(1/40) 473 ML SOLUTION TP ×2 (08:30→20:21)
[2019-05-15] MEDS: EUCERIN 113 GM CR TOP (08:30)
[2019-05-15] MEDS: ATORVASTATIN 80 MG TAB PO (20:18)
[2019-05-15] MEDS: MIRTAZAPINE 15 MG TAB PO (20:20)
[2019-05-15] MEDS: BROMOCRIPTINE 2.5 MG TAB PO (20:20)
[2019-05-15] MEDS: INSULIN GLARGINE [LANTus] (100 UNITS/ML) SYG SC (20:32)
[2019-05-16] MEDS: ACCU-CHEK XX ×7 (02:46→20:33)
[2019-05-16 05:15] LABS: AADO2 Arterial 80.1 mmHg (7.0-24.0); Allen Test ACCEPTAB; Arterial Base Excess 0.1 mmol/L (-3.0-3); Arterial Blood Gas Oxygen Sat 88.7 mmHG (95.0-98.0); Arterial COHb 1.4 % (0.0-3.0); Arterial Fraction of Oxyhgb 87.1 % (93.0-99.0); Arterial HCO3 25.1 mmol/L (22.0-26.0); Arterial MetHb 0.4 % (0.0-1.5); Arterial pCO2 42.5 mmhg (35-45); MODE NASAL CANNULA; Site Right Radial
[2019-05-16 05:29] LABS: ADD MAN DIFF? NO
[2019-05-16 05:35] LABS: BASOPHIL # 0.1 10^3/ul (0.0-0.1); BASOPHILS % 0.5 % (0.0-2.0); HEMATOCRIT 25.3 % (42.0-52.0); HEMOGLOBIN 8.1 g/dl (14.0-18.0); LYMPHOCYTES # 1.5 10^3/ul (0.8-2.9); LYMPHOCYTES % 15.2 % (15.0-51.0); MEAN CORPUSCULAR HEMOGLOBIN 28.8 pg (29.0-33.0); MEAN PLATELET VOLUME 10.8 fl (7.4-10.4); MONOCYTE # 1.3 10^3/ul (0.3-0.9); NEUTROPHIL # 7.1 10^3/ul (1.6-7.5); NEUTROPHILS % 70.8 % (39.0-77.0); PLATELET COUNT 297 10^3/UL (140-415); RED BLOOD COUNT 2.81 10^6/ul (4.70-6.10); RED CELL DISTRIBUTION WIDTH 16.2 % (11.5-14.5)
[2019-05-16 05:54] LABS: ANION GAP 12 (5-13); BLOOD UREA NITROGEN 55 mg/dl (7-20); CALCIUM 8.9 mg/dl (8.4-10.2); CARBON DIOXIDE 24 mmol/L (21-31); CHLORIDE 102 mmol/L (97-110); CREATININE 9.09 mg/dl (0.61-1.24); Estimated GFR 7 mL/min (>60); GLUCOSE 196 mg/dl (70-220); SODIUM 138 mmol/L (135-144)
[2019-05-16 06:04] LABS: AMMONIA < 9 umol/l (9-30)
[2019-05-16] MEDS: ONDANSETRON 4 MG INJ IV (06:07)
[2019-05-16] MEDS ORDERED: FAMOTIDINE IV 40 MG in SOD CHLORIDE 0.9% 250 ML IV (07:00)
[2019-05-16] MEDS: SEVELAMER CARBONATE 800 MG TABLET PO ×3 (08:00→17:27)
[2019-05-16] MEDS: METOPROLOL 100 MG TAB PO ×2 (08:21→20:40)
[2019-05-16] MEDS: ZINC SULFATE 220 MG CAP PO (08:21)
[2019-05-16] MEDS: AMLODIPINE 5 MG TAB PO (08:21)
[2019-05-16] MEDS: CLOPIDOGREL 75 MG TAB PO (08:21)
[2019-05-16] MEDS: ASPIRIN (EC) 81 MG TAB PO (08:21)
[2019-05-16] MEDS: BACLOFEN 10 MG TAB PO ×3 (08:21→20:39)
[2019-05-16] MEDS: PAROXETINE 10 MG TAB PO (08:21)
[2019-05-16] MEDS: MULTIVIT/CA CARB/B CMPLX/FA TAB PO (08:21)
[2019-05-16] MEDS: LINAGLIPTIN 5 MG TABLET PO (08:22)
[2019-05-16] MEDS: LISINOPRIL 20 MG TAB PO (08:22)
[2019-05-16] MEDS: FAMOTIDINE 20 MG INJ IV ×2 (08:24→20:39)
[2019-05-16] MEDS: POVIDONE IODINE 10% 28.4 GM OINT TOP ×2 (08:29→20:41)
[2019-05-16] MEDS: DAKINS 0.0125%(1/40) 473 ML SOLUTION TP ×2 (08:29→20:41)
[2019-05-16] MEDS: EUCERIN 113 GM CR TOP (08:29)
[2019-05-16] MEDS: INSULIN ASPART [NOVOLOG] 3 ML PEN SC ×4 (08:32→20:41)
[2019-05-16 10:47] LABS: WHITE BLOOD COUNT 9.1 10^3/ul (4.8-10.8)
[2019-05-16 10:47] LABS: ADD MAN DIFF? NO; BASOPHILS % 0.4 % (0.0-2.0); EOSINOPHILS % 0.1 % (0.0-7.0); HEMATOCRIT 24.3 % (42.0-52.0); HEMOGLOBIN 7.7 g/dl (14.0-18.0); LYMPHOCYTES % 10.7 % (15.0-51.0); MEAN CORPUSCULAR HEMOGLOBIN 28.6 pg (29.0-33.0); MEAN CORPUSCULAR HGB CONC 31.7 g/dl (32.0-37.0); MEAN CORPUSCULAR VOLUME 90.3 fl (82.0-101.0); MEAN PLATELET VOLUME 10.5 fl (7.4-10.4); MONOCYTE # 1.2 10^3/ul (0.3-0.9); MONOCYTES % 13.2 % (0.0-11.0); NEUTROPHIL # 6.8 10^3/ul (1.6-7.5); NEUTROPHILS % 75.3 % (39.0-77.0); PLATELET COUNT 284 10^3/UL (140-415); RED BLOOD COUNT 2.69 10^6/ul (4.70-6.10)
[2019-05-16] MEDS: hydrALAzine 20 MG INJ IV (15:52)
[2019-05-16 18:39] LABS: ADD MAN DIFF? NO
[2019-05-16 18:46] LABS: WHITE BLOOD COUNT 10.1 10^3/ul (4.8-10.8)
[2019-05-16 18:46] LABS: ABNORMAL IP MESSAGE 1; BASOPHILS % 0.3 % (0.0-2.0); HEMATOCRIT 24.4 % (42.0-52.0); HEMOGLOBIN 7.9 g/dl (14.0-18.0); LYMPHOCYTES # 0.6 10^3/ul (0.8-2.9); LYMPHOCYTES % 5.9 % (15.0-51.0); MEAN CORPUSCULAR HEMOGLOBIN 28.4 pg (29.0-33.0); MEAN CORPUSCULAR HGB CONC 32.4 g/dl (32.0-37.0); MEAN CORPUSCULAR VOLUME 87.8 fl (82.0-101.0); MEAN PLATELET VOLUME 10.6 fl (7.4-10.4); MONOCYTE # 1.2 10^3/ul (0.3-0.9); MONOCYTES % 12.2 % (0.0-11.0); NEUTROPHIL # 8.2 10^3/ul (1.6-7.5); NEUTROPHILS % 81.2 % (39.0-77.0); PLATELET COUNT 318 10^3/UL (140-415); POSITIVE DIFF @See below; RED BLOOD COUNT 2.78 10^6/ul (4.70-6.10); RED CELL DISTRIBUTION WIDTH 15.9 % (11.5-14.5)
[2019-05-16] MEDS: INSULIN GLARGINE [LANTus] (100 UNITS/ML) SYG SC ×2 (20:00→22:24)
[2019-05-16] MEDS: ATORVASTATIN 80 MG TAB PO (20:40)
[2019-05-16] MEDS: BROMOCRIPTINE 2.5 MG TAB PO (20:41)
[2019-05-16] MEDS: MIRTAZAPINE 15 MG TAB PO (20:41)
[2019-05-17] MEDS: morphine 2 MG INJ IV (01:45)
[2019-05-17] MEDS: ACCU-CHEK XX ×6 (02:24→17:02)
[2019-05-17 05:59] LABS: ADD MAN DIFF? NO
[2019-05-17 06:11] LABS: BASOPHIL # 0.1 10^3/ul (0.0-0.1); BASOPHILS % 0.9 % (0.0-2.0); EOSINOPHILS % 0.3 % (0.0-7.0); HEMATOCRIT 24.7 % (42.0-52.0); HEMOGLOBIN 7.9 g/dl (14.0-18.0); LYMPHOCYTES # 1.5 10^3/ul (0.8-2.9); LYMPHOCYTES % 18.8 % (15.0-51.0); MEAN CORPUSCULAR HEMOGLOBIN 28.2 pg (29.0-33.0); MEAN CORPUSCULAR VOLUME 88.2 fl (82.0-101.0); MEAN PLATELET VOLUME 11.1 fl (7.4-10.4); MONOCYTE # 1.1 10^3/ul (0.3-0.9); NEUTROPHIL # 5.1 10^3/ul (1.6-7.5); NEUTROPHILS % 65.7 % (39.0-77.0); PLATELET COUNT 333 10^3/UL (140-415); RED CELL DISTRIBUTION WIDTH 16.2 % (11.5-14.5)
[2019-05-17 06:11] LABS: WHITE BLOOD COUNT 7.8 10^3/ul (4.8-10.8)
[2019-05-17 07:28] LABS: ANION GAP 11 (5-13); BLOOD UREA NITROGEN 36 mg/dl (7-20); CALCIUM 9.1 mg/dl (8.4-10.2); CARBON DIOXIDE 26 mmol/L (21-31); CHLORIDE 103 mmol/L (97-110); Estimated GFR 10 mL/min (>60); GLUCOSE 79 mg/dl (70-220); POTASSIUM 5.3 mmol/L (3.5-5.1); SODIUM 140 mmol/L (135-144)
[2019-05-17] MEDS: INSULIN ASPART [NOVOLOG] 3 ML PEN SC ×4 (08:00→21:08)
[2019-05-17] MEDS: LISINOPRIL 20 MG TAB PO (08:03)
[2019-05-17] MEDS: MULTIVIT/CA CARB/B CMPLX/FA TAB PO (08:03)
[2019-05-17] MEDS: SEVELAMER CARBONATE 800 MG TABLET PO ×3 (08:03→17:02)
[2019-05-17] MEDS: LEVOFLOXACIN 500 MG TAB PO (08:03)
[2019-05-17] MEDS: ASPIRIN (EC) 81 MG TAB PO (08:04)
[2019-05-17] MEDS: ZINC SULFATE 220 MG CAP PO (08:04)
[2019-05-17] MEDS: PAROXETINE 10 MG TAB PO (08:04)
[2019-05-17] MEDS: LINAGLIPTIN 5 MG TABLET PO (08:05)
[2019-05-17] MEDS: FAMOTIDINE 20 MG INJ IV (08:05)
[2019-05-17] MEDS: CLOPIDOGREL 75 MG TAB PO (08:10)
[2019-05-17] MEDS: AMLODIPINE 5 MG TAB PO (08:10)
[2019-05-17] MEDS: EUCERIN 113 GM CR TOP (08:10)
[2019-05-17] MEDS: BACLOFEN 10 MG TAB PO ×3 (08:10→20:57)
[2019-05-17] MEDS: DAKINS 0.0125%(1/40) 473 ML SOLUTION TP ×2 (08:11→21:00)
[2019-05-17] MEDS: METOPROLOL 100 MG TAB PO ×2 (08:11→20:57)
[2019-05-17] MEDS: POVIDONE IODINE 10% 28.4 GM OINT TOP ×2 (08:11→21:00)
[2019-05-17] MEDS: EPOETIN ALFA-EPBX (ESRD) 4,000 UNIT/ML VIAL SC (17:03)
[2019-05-17] MEDS: CILOSTAZOL 100 MG TAB PO (20:56)
[2019-05-17] MEDS: BROMOCRIPTINE 2.5 MG TAB PO (20:56)
[2019-05-17] MEDS: MIRTAZAPINE 15 MG TAB PO (20:56)
[2019-05-17] MEDS: ATORVASTATIN 80 MG TAB PO (20:57)
[2019-05-17] MEDS: INSULIN GLARGINE [LANTus] (100 UNITS/ML) SYG SC (22:00)
[2019-05-18] MEDS: ACCU-CHEK XX ×4 (02:57→17:18)
[2019-05-18 06:11] LABS: ADD MAN DIFF? NO
[2019-05-18 06:13] LABS: BASOPHIL # 0.1 10^3/ul (0.0-0.1); BASOPHILS % 1.2 % (0.0-2.0); EOSINOPHILS # 0.1 10^3/ul (0.0-0.5); HEMOGLOBIN 8.7 g/dl (14.0-18.0); LYMPHOCYTES % 15.9 % (15.0-51.0); MEAN CORPUSCULAR HEMOGLOBIN 28.2 pg (29.0-33.0); MEAN CORPUSCULAR HGB CONC 31.1 g/dl (32.0-37.0); MEAN CORPUSCULAR VOLUME 90.6 fl (82.0-101.0); MEAN PLATELET VOLUME 10.9 fl (7.4-10.4); MONOCYTE # 0.9 10^3/ul (0.3-0.9); MONOCYTES % 15.3 % (0.0-11.0); NEUTROPHIL # 3.9 10^3/ul (1.6-7.5); NEUTROPHILS % 65.3 % (39.0-77.0); PLATELET COUNT 353 10^3/UL (140-415); RED BLOOD COUNT 3.09 10^6/ul (4.70-6.10); RED CELL DISTRIBUTION WIDTH 16.4 % (11.5-14.5)
[2019-05-18 06:51] LABS: ANION GAP 8 (5-13); BLOOD UREA NITROGEN 29 mg/dl (7-20); CALCIUM 9.4 mg/dl (8.4-10.2); CARBON DIOXIDE 32 mmol/L (21-31); CHLORIDE 101 mmol/L (97-110); CREATININE 5.46 mg/dl (0.61-1.24); Estimated GFR 13 mL/min (>60); GLUCOSE 104 mg/dl (70-220); MAGNESIUM 2.6 mg/dl (1.7-2.5); PHOSPHORUS 4.4 mg/dl (2.5-4.9); POTASSIUM 4.6 mmol/L (3.5-5.1); SODIUM 141 mmol/L (135-144)
[2019-05-18] MEDS: INSULIN ASPART [NOVOLOG] 3 ML PEN SC ×4 (08:00→21:00)
[2019-05-18] MEDS: METOPROLOL 100 MG TAB PO ×2 (08:13→21:17)
[2019-05-18] MEDS: CILOSTAZOL 100 MG TAB PO ×2 (08:13→21:16)
[2019-05-18] MEDS: SEVELAMER CARBONATE 800 MG TABLET PO ×3 (08:13→17:22)
[2019-05-18] MEDS: FAMOTIDINE 20 MG TAB PO (08:13)
[2019-05-18] MEDS: MULTIVIT/CA CARB/B CMPLX/FA TAB PO (08:13)
[2019-05-18] MEDS: PAROXETINE 10 MG TAB PO (08:13)
[2019-05-18] MEDS: ASPIRIN (EC) 81 MG TAB PO (08:14)
[2019-05-18] MEDS: CLOPIDOGREL 75 MG TAB PO (08:14)
[2019-05-18] MEDS: LINAGLIPTIN 5 MG TABLET PO (08:14)
[2019-05-18] MEDS: ZINC SULFATE 220 MG CAP PO (08:14)
[2019-05-18] MEDS: BACLOFEN 10 MG TAB PO ×3 (08:14→21:16)
[2019-05-18] MEDS: EUCERIN 113 GM CR TOP (08:16)
[2019-05-18] MEDS: DAKINS 0.0125%(1/40) 473 ML SOLUTION TP ×2 (08:16→21:17)
[2019-05-18] MEDS: POVIDONE IODINE 10% 28.4 GM OINT TOP ×2 (08:17→21:17)
[2019-05-18] MEDS: AMLODIPINE 5 MG TAB PO (08:22)
[2019-05-18] MEDS: LISINOPRIL 20 MG TAB PO (08:22)
[2019-05-18 11:22] LABS: VANCOMYCIN,TROUGH 11.2 ug/ml (10.0-20.0)
[2019-05-18] MEDS: VANCOMYCIN 1 GM 250 ML IVPB (12:36)
[2019-05-18] MEDS: ATORVASTATIN 80 MG TAB PO (21:16)
[2019-05-18] MEDS: BROMOCRIPTINE 2.5 MG TAB PO (21:16)
[2019-05-18] MEDS: MIRTAZAPINE 15 MG TAB PO (21:17)
[2019-05-18] MEDS: INSULIN GLARGINE [LANTus] (100 UNITS/ML) SYG SC (21:33)
[2019-05-19] MEDS: ACCU-CHEK XX ×4 (02:00→17:44)
[2019-05-19] MEDS: INSULIN ASPART [NOVOLOG] 3 ML PEN SC ×4 (08:45→21:13)
[2019-05-19] MEDS: SEVELAMER CARBONATE 800 MG TABLET PO ×3 (08:58→17:43)
[2019-05-19] MEDS: LISINOPRIL 20 MG TAB PO (08:58)
[2019-05-19] MEDS: ASPIRIN (EC) 81 MG TAB PO (08:59)
[2019-05-19] MEDS: CILOSTAZOL 100 MG TAB PO ×2 (08:59→20:44)
[2019-05-19] MEDS: CLOPIDOGREL 75 MG TAB PO (08:59)
[2019-05-19] MEDS: LEVOFLOXACIN 500 MG TAB PO (08:59)
[2019-05-19] MEDS: FAMOTIDINE 20 MG TAB PO (08:59)
[2019-05-19] MEDS: ZINC SULFATE 220 MG CAP PO (08:59)
[2019-05-19] MEDS: AMLODIPINE 5 MG TAB PO (08:59)
[2019-05-19] MEDS: DAKINS 0.0125%(1/40) 473 ML SOLUTION TP ×2 (09:00→21:21)
[2019-05-19] MEDS: LINAGLIPTIN 5 MG TABLET PO (09:00)
[2019-05-19] MEDS: MULTIVIT/CA CARB/B CMPLX/FA TAB PO (09:00)
[2019-05-19] MEDS: BACLOFEN 10 MG TAB PO ×3 (09:00→20:44)
[2019-05-19] MEDS: METOPROLOL 100 MG TAB PO ×2 (09:00→20:59)
[2019-05-19] MEDS: PAROXETINE 10 MG TAB PO (09:00)
[2019-05-19] MEDS: EUCERIN 113 GM CR TOP (09:01)
[2019-05-19] MEDS: POVIDONE IODINE 10% 28.4 GM OINT TOP ×2 (09:01→21:22)
[2019-05-19] MEDS: EPOETIN ALFA-EPBX (ESRD) 4,000 UNIT/ML VIAL SC (19:03)
[2019-05-19] MEDS: MIRTAZAPINE 15 MG TAB PO (20:44)
[2019-05-19] MEDS: ATORVASTATIN 80 MG TAB PO (20:44)
[2019-05-19] MEDS: BROMOCRIPTINE 2.5 MG TAB PO (20:44)
[2019-05-19] MEDS: INSULIN GLARGINE [LANTus] (100 UNITS/ML) SYG SC (21:13)
[2019-05-20] MEDS: DEXTROSE 5%-0.45% NACL 1,000 ML IV ×2 (00:09→09:29)
[2019-05-20] MEDS: ACCU-CHEK XX ×4 (02:00→17:17)
[2019-05-20 05:58] LABS: ADD MAN DIFF? NO; BASOPHIL # 0.1 10^3/ul (0.0-0.1); EOSINOPHILS # 0.2 10^3/ul (0.0-0.5); EOSINOPHILS % 2.3 % (0.0-7.0); HEMOGLOBIN 8.8 g/dl (14.0-18.0); LYMPHOCYTES # 0.9 10^3/ul (0.8-2.9); LYMPHOCYTES % 13.1 % (15.0-51.0); MEAN CORPUSCULAR HEMOGLOBIN 27.2 pg (29.0-33.0); MEAN CORPUSCULAR HGB CONC 31.4 g/dl (32.0-37.0); MEAN CORPUSCULAR VOLUME 86.7 fl (82.0-101.0); MEAN PLATELET VOLUME 10.6 fl (7.4-10.4); MONOCYTES % 14.7 % (0.0-11.0); NEUTROPHIL # 4.8 10^3/ul (1.6-7.5); NEUTROPHILS % 68.6 % (39.0-77.0); PLATELET COUNT 427 10^3/UL (140-415); RED BLOOD COUNT 3.23 10^6/ul (4.70-6.10); RED CELL DISTRIBUTION WIDTH 16.9 % (11.5-14.5)
[2019-05-20 06:40] LABS: ANION GAP 13 (5-13); BLOOD UREA NITROGEN 43 mg/dl (7-20); CALCIUM 9.2 mg/dl (8.4-10.2); CARBON DIOXIDE 26 mmol/L (21-31); CHLORIDE 101 mmol/L (97-110); CREATININE 6.72 mg/dl (0.61-1.24); Estimated GFR 10 mL/min (>60); GLUCOSE 205 mg/dl (70-220); POTASSIUM 4.6 mmol/L (3.5-5.1); SODIUM 140 mmol/L (135-144)
[2019-05-20] MEDS: INSULIN ASPART [NOVOLOG] 3 ML PEN SC ×4 (07:54→21:04)
[2019-05-20] MEDS: SEVELAMER CARBONATE 800 MG TABLET PO ×3 (08:00→17:23)
[2019-05-20] MEDS: CILOSTAZOL 100 MG TAB PO ×2 (09:00→20:43)
[2019-05-20] MEDS: POVIDONE IODINE 10% 28.4 GM OINT TOP ×2 (09:00→20:45)
[2019-05-20] MEDS: DAKINS 0.0125%(1/40) 473 ML SOLUTION TP ×2 (09:00→20:44)
[2019-05-20] MEDS: METOPROLOL 100 MG TAB PO ×2 (09:00→20:44)
[2019-05-20] MEDS: MULTIVIT/CA CARB/B CMPLX/FA TAB PO (09:00)
[2019-05-20] MEDS: LISINOPRIL 20 MG TAB PO (09:00)
[2019-05-20] MEDS: CLOPIDOGREL 75 MG TAB PO (09:00)
[2019-05-20] MEDS: EUCERIN 113 GM CR TOP (09:00)
[2019-05-20] MEDS: AMLODIPINE 5 MG TAB PO (09:00)
[2019-05-20] MEDS: PAROXETINE 10 MG TAB PO (09:00)
[2019-05-20] MEDS: LINAGLIPTIN 5 MG TABLET PO (09:00)
[2019-05-20] MEDS: ZINC SULFATE 220 MG CAP PO (09:00)
[2019-05-20] MEDS: FAMOTIDINE 20 MG TAB PO (09:00)
[2019-05-20] MEDS: BACLOFEN 10 MG TAB PO ×3 (09:00→20:44)
[2019-05-20] MEDS: ASPIRIN (EC) 81 MG TAB PO (09:00)
[2019-05-20] MEDS ORDERED: LIDOCAINE 1% (MPF) 30 ML INJ (12:36)
[2019-05-20] MEDS ORDERED: BUPIVACAINE 0.25% (MPF) 30 ML INJ (12:36)
[2019-05-20] MEDS: BUPIVACAINE 0.25% (STERILE-PAK) 30 ML INJ INJ (12:50)
[2019-05-20] MEDS: LIDOCAINE 1% (MDV) 20 ML INJ INJ (12:50)
[2019-05-20] MEDS ORDERED: hydrALAzine 20 MG INJ (13:22)
[2019-05-20] MEDS: POLYMYXIN/BACITRACIN 1L IRRIG IRR (13:30)
[2019-05-20] MEDS ORDERED: DEXAMETHASONE 4 MG/ML 1 ML INJ (13:30)
[2019-05-20] MEDS: BUPIVACAINE 0.5% (SDV) 30 ML INJ INJ (13:30)
[2019-05-20] MEDS ORDERED: BUPIVACAINE 0.5% (SDV) 30 ML INJ (13:30)
[2019-05-20] MEDS: BROMOCRIPTINE 2.5 MG TAB PO (20:43)
[2019-05-20] MEDS: MIRTAZAPINE 15 MG TAB PO (20:44)
[2019-05-20] MEDS: ATORVASTATIN 80 MG TAB PO (20:44)
[2019-05-20] MEDS: INSULIN GLARGINE [LANTus] (100 UNITS/ML) SYG SC (21:03)
[2019-05-21] MEDS: DEXTROSE 5%-0.45% NACL 1,000 ML IV ×2 (01:51→17:35)
[2019-05-21] MEDS: ACCU-CHEK XX ×4 (02:34→17:18)
[2019-05-21 05:42] LABS: ADD MAN DIFF? NO
[2019-05-21 05:52] LABS: BASOPHILS % 0.7 % (0.0-2.0); EOSINOPHILS % 0.2 % (0.0-7.0); HEMATOCRIT 26.5 % (42.0-52.0); HEMOGLOBIN 8.4 g/dl (14.0-18.0); LYMPHOCYTES # 0.8 10^3/ul (0.8-2.9); LYMPHOCYTES % 13.8 % (15.0-51.0); MEAN CORPUSCULAR HEMOGLOBIN 27.6 pg (29.0-33.0); MEAN CORPUSCULAR HGB CONC 31.7 g/dl (32.0-37.0); MEAN CORPUSCULAR VOLUME 87.2 fl (82.0-101.0); MEAN PLATELET VOLUME 10.2 fl (7.4-10.4); MONOCYTE # 0.6 10^3/ul (0.3-0.9); MONOCYTES % 11.1 % (0.0-11.0); NEUTROPHIL # 4.1 10^3/ul (1.6-7.5); PLATELET COUNT 395 10^3/UL (140-415); RED BLOOD COUNT 3.04 10^6/ul (4.70-6.10)
[2019-05-21 05:52] LABS: WHITE BLOOD COUNT 5.5 10^3/ul (4.8-10.8)
[2019-05-21 06:28] LABS: ANION GAP 14 (5-13); BLOOD UREA NITROGEN 55 mg/dl (7-20); CALCIUM 9.2 mg/dl (8.4-10.2); CARBON DIOXIDE 24 mmol/L (21-31); CHLORIDE 104 mmol/L (97-110); CREATININE 9.33 mg/dl (0.61-1.24); Estimated GFR 7 mL/min (>60); GLUCOSE 166 mg/dl (70-220); POTASSIUM 5.2 mmol/L (3.5-5.1); SODIUM 142 mmol/L (135-144)
[2019-05-21] MEDS: SEVELAMER CARBONATE 800 MG TABLET PO ×3 (07:36→17:35)
[2019-05-21] MEDS: LEVOFLOXACIN 500 MG TAB PO (07:36)
[2019-05-21] MEDS: INSULIN ASPART [NOVOLOG] 3 ML PEN SC ×4 (07:36→21:00)
[2019-05-21] MEDS: METOPROLOL 100 MG TAB PO ×2 (08:30→21:40)
[2019-05-21] MEDS: PAROXETINE 10 MG TAB PO (08:31)
[2019-05-21] MEDS: MULTIVIT/CA CARB/B CMPLX/FA TAB PO (08:31)
[2019-05-21] MEDS: CILOSTAZOL 100 MG TAB PO ×2 (08:32→21:39)
[2019-05-21] MEDS: LINAGLIPTIN 5 MG TABLET PO (08:33)
[2019-05-21] MEDS: LISINOPRIL 20 MG TAB PO (08:33)
[2019-05-21] MEDS: ASPIRIN (EC) 81 MG TAB PO (08:34)
[2019-05-21] MEDS: FAMOTIDINE 20 MG TAB PO (08:34)
[2019-05-21] MEDS: ZINC SULFATE 220 MG CAP PO (08:34)
[2019-05-21] MEDS: BACLOFEN 10 MG TAB PO ×3 (08:35→21:39)
[2019-05-21] MEDS: CLOPIDOGREL 75 MG TAB PO (08:35)
[2019-05-21] MEDS: DAKINS 0.0125%(1/40) 473 ML SOLUTION TP ×2 (08:37→21:00)
[2019-05-21] MEDS: EUCERIN 113 GM CR TOP (08:37)
[2019-05-21] MEDS: POVIDONE IODINE 10% 28.4 GM OINT TOP ×2 (08:37→21:00)
[2019-05-21] MEDS: EPOETIN ALFA-EPBX (ESRD) 4,000 UNIT/ML VIAL SC (17:22)
[2019-05-21] MEDS: ATORVASTATIN 80 MG TAB PO (21:39)
[2019-05-21] MEDS: BROMOCRIPTINE 2.5 MG TAB PO (21:39)
[2019-05-21] MEDS: MIRTAZAPINE 15 MG TAB PO (21:40)
[2019-05-21] MEDS: INSULIN GLARGINE [LANTus] (100 UNITS/ML) SYG SC (21:43)
[2019-05-22] MEDS: ACCU-CHEK XX ×4 (02:00→17:12)
[2019-05-22] MEDS: INSULIN ASPART [NOVOLOG] 3 ML PEN SC ×4 (07:45→21:00)
[2019-05-22] MEDS: SEVELAMER CARBONATE 800 MG TABLET PO ×3 (08:08→17:12)
[2019-05-22] MEDS: PAROXETINE 10 MG TAB PO (08:08)
[2019-05-22] MEDS: MULTIVIT/CA CARB/B CMPLX/FA TAB PO (08:08)
[2019-05-22] MEDS: LISINOPRIL 20 MG TAB PO (08:09)
[2019-05-22] MEDS: CILOSTAZOL 100 MG TAB PO ×2 (08:09→21:29)
[2019-05-22] MEDS: FAMOTIDINE 20 MG TAB PO (08:09)
[2019-05-22] MEDS: BACLOFEN 10 MG TAB PO ×3 (08:10→21:29)
[2019-05-22] MEDS: ZINC SULFATE 220 MG CAP PO (08:10)
[2019-05-22] MEDS: ASPIRIN (EC) 81 MG TAB PO (08:10)
[2019-05-22] MEDS: LINAGLIPTIN 5 MG TABLET PO (08:10)
[2019-05-22] MEDS: METOPROLOL 100 MG TAB PO ×2 (08:10→21:30)
[2019-05-22] MEDS: CLOPIDOGREL 75 MG TAB PO (08:10)
[2019-05-22] MEDS: EUCERIN 113 GM CR TOP (08:11)
[2019-05-22] MEDS: POVIDONE IODINE 10% 28.4 GM OINT TOP ×2 (08:11→21:41)
[2019-05-22] MEDS: DAKINS 0.0125%(1/40) 473 ML SOLUTION TP ×2 (08:11→21:34)
[2019-05-22] MEDS: VANCOMYCIN 1 GM 250 ML IVPB (12:10)
[2019-05-22] MEDS: BROMOCRIPTINE 2.5 MG TAB PO (21:28)
[2019-05-22] MEDS: ATORVASTATIN 80 MG TAB PO (21:29)
[2019-05-22] MEDS: MIRTAZAPINE 15 MG TAB PO (21:29)
[2019-05-22] MEDS ORDERED: GLIMEPIRIDE 2 MG TAB PO (23:30)
[2019-05-23] MEDS: ACCU-CHEK XX ×4 (02:00→17:43)
[2019-05-23] MEDS: INSULIN ASPART [NOVOLOG] 3 ML PEN SC ×7 (08:00→21:00)
[2019-05-23] MEDS: glipiZIDE 5 MG TAB PO ×2 (08:02→17:41)
[2019-05-23] MEDS: LEVOFLOXACIN 500 MG TAB PO (08:03)
[2019-05-23] MEDS: SEVELAMER CARBONATE 800 MG TABLET PO ×3 (08:03→17:41)
[2019-05-23] MEDS: CLOPIDOGREL 75 MG TAB PO (08:16)
[2019-05-23] MEDS: PAROXETINE 10 MG TAB PO (08:16)
[2019-05-23] MEDS: ZINC SULFATE 220 MG CAP PO (08:16)
[2019-05-23] MEDS: MULTIVIT/CA CARB/B CMPLX/FA TAB PO (08:16)
[2019-05-23] MEDS: BACLOFEN 10 MG TAB PO ×3 (08:16→21:04)
[2019-05-23] MEDS: FAMOTIDINE 20 MG TAB PO (08:16)
[2019-05-23] MEDS: ASPIRIN (EC) 81 MG TAB PO (08:16)
[2019-05-23] MEDS: METOPROLOL 100 MG TAB PO ×2 (08:17→21:04)
[2019-05-23] MEDS: LINAGLIPTIN 5 MG TABLET PO (08:17)
[2019-05-23] MEDS: LISINOPRIL 20 MG TAB PO (08:18)
[2019-05-23] MEDS: POVIDONE IODINE 10% 28.4 GM OINT TOP ×2 (08:18→21:05)
[2019-05-23] MEDS: EUCERIN 113 GM CR TOP (08:19)
[2019-05-23] MEDS: DAKINS 0.0125%(1/40) 473 ML SOLUTION TP ×2 (08:20→21:00)
[2019-05-23] MEDS: CILOSTAZOL 100 MG TAB PO ×2 (12:33→21:05)
[2019-05-23] MEDS: DEXTROSE 50% 50 ML SYRINGE IV ×3 (12:51→20:57)
[2019-05-23] MEDS: GLUCAGON 1 MG INJ IM (12:57)
[2019-05-23 13:35] LABS: WHITE BLOOD COUNT 8.7 10^3/ul (4.8-10.8)
[2019-05-23 13:35] LABS: BASOPHIL # 0.1 10^3/ul (0.0-0.1); BASOPHILS % 0.8 % (0.0-2.0); EOSINOPHILS # 0.3 10^3/ul (0.0-0.5); EOSINOPHILS % 3.8 % (0.0-7.0); HEMATOCRIT 28.4 % (42.0-52.0); HEMOGLOBIN 8.9 g/dl (14.0-18.0); LYMPHOCYTES # 0.8 10^3/ul (0.8-2.9); MEAN CORPUSCULAR HEMOGLOBIN 27.4 pg (29.0-33.0); MEAN CORPUSCULAR HGB CONC 31.3 g/dl (32.0-37.0); MEAN CORPUSCULAR VOLUME 87.4 fl (82.0-101.0); MEAN PLATELET VOLUME 10.1 fl (7.4-10.4); MONOCYTE # 0.7 10^3/ul (0.3-0.9); MONOCYTES % 7.6 % (0.0-11.0); NEUTROPHIL # 6.9 10^3/ul (1.6-7.5); NEUTROPHILS % 78.6 % (39.0-77.0); PLATELET COUNT 395 10^3/UL (140-415); RED BLOOD COUNT 3.25 10^6/ul (4.70-6.10); RED CELL DISTRIBUTION WIDTH 17.3 % (11.5-14.5)
[2019-05-23 13:36] LABS: ADD MAN DIFF? NO
[2019-05-23 13:52] LABS: ANION GAP 12 (5-13); BLOOD UREA NITROGEN 53 mg/dl (7-20); CALCIUM 8.8 mg/dl (8.4-10.2); CARBON DIOXIDE 27 mmol/L (21-31); CHLORIDE 98 mmol/L (97-110); CREATININE 9.54 mg/dl (0.61-1.24); Estimated GFR 7 mL/min (>60); GLUCOSE 102 mg/dl (70-220); POTASSIUM 4.3 mmol/L (3.5-5.1); SODIUM 137 mmol/L (135-144)
[2019-05-23] MEDS ORDERED: INSULIN GLARGINE [LANTus] (100 UNITS/ML) SYG SC (20:00)
[2019-05-23] MEDS: ATORVASTATIN 80 MG TAB PO (21:04)
[2019-05-23] MEDS: BROMOCRIPTINE 2.5 MG TAB PO (21:05)
[2019-05-23] MEDS: MIRTAZAPINE 15 MG TAB PO (21:05)
[2019-05-24] MEDS: INSULIN ASPART [NOVOLOG] 3 ML PEN SC ×6 (01:00→21:00)
[2019-05-24] MEDS: ACCU-CHEK XX ×4 (02:00→17:05)
[2019-05-24] MEDS: DEXTROSE 50% 50 ML SYRINGE IV (08:38)
[2019-05-24] MEDS: PAROXETINE 10 MG TAB PO (08:43)
[2019-05-24] MEDS: SEVELAMER CARBONATE 800 MG TABLET PO ×3 (08:43→17:06)
[2019-05-24] MEDS: MULTIVIT/CA CARB/B CMPLX/FA TAB PO (08:43)
[2019-05-24] MEDS: ZINC SULFATE 220 MG CAP PO (08:43)
[2019-05-24] MEDS: CILOSTAZOL 100 MG TAB PO ×2 (08:43→21:01)
[2019-05-24] MEDS: BACLOFEN 10 MG TAB PO ×3 (08:43→21:00)
[2019-05-24] MEDS: CLOPIDOGREL 75 MG TAB PO (08:43)
[2019-05-24] MEDS: FAMOTIDINE 20 MG TAB PO (08:44)
[2019-05-24] MEDS: LISINOPRIL 20 MG TAB PO (08:44)
[2019-05-24] MEDS: METOPROLOL 100 MG TAB PO ×2 (08:44→21:01)
[2019-05-24] MEDS: ASPIRIN (EC) 81 MG TAB PO (08:44)
[2019-05-24] MEDS: LINAGLIPTIN 5 MG TABLET PO (08:44)
[2019-05-24] MEDS: DAKINS 0.0125%(1/40) 473 ML SOLUTION TP ×2 (08:45→21:02)
[2019-05-24] MEDS: EUCERIN 113 GM CR TOP (08:45)
[2019-05-24] MEDS: POVIDONE IODINE 10% 28.4 GM OINT TOP ×2 (08:46→21:03)
[2019-05-24] MEDS: EPOETIN ALFA-EPBX (ESRD) 4,000 UNIT/ML VIAL SC (17:05)
[2019-05-24] MEDS: BROMOCRIPTINE 2.5 MG TAB PO (21:00)
[2019-05-24] MEDS: ATORVASTATIN 80 MG TAB PO (21:00)
[2019-05-24] MEDS: MIRTAZAPINE 15 MG TAB PO (21:01)
[2019-05-25] MEDS: INSULIN ASPART [NOVOLOG] 3 ML PEN SC ×5 (01:00→17:00)
[2019-05-25] MEDS: ACCU-CHEK XX ×4 (01:14→17:13)
[2019-05-25 06:13] LABS: ANION GAP 10 (5-13); BLOOD UREA NITROGEN 35 mg/dl (7-20); CALCIUM 8.4 mg/dl (8.4-10.2); CARBON DIOXIDE 30 mmol/L (21-31); CHLORIDE 97 mmol/L (97-110); CREATININE 7.13 mg/dl (0.61-1.24); Estimated GFR 9 mL/min (>60); GLUCOSE 101 mg/dl (70-220); POTASSIUM 4.2 mmol/L (3.5-5.1); SODIUM 137 mmol/L (135-144)
[2019-05-25] MEDS: SEVELAMER CARBONATE 800 MG TABLET PO ×3 (08:04→17:13)
[2019-05-25] MEDS: LEVOFLOXACIN 500 MG TAB PO (08:05)
[2019-05-25] MEDS: ASPIRIN (EC) 81 MG TAB PO (09:00)
[2019-05-25] MEDS: PAROXETINE 10 MG TAB PO (09:14)
[2019-05-25] MEDS: FAMOTIDINE 20 MG TAB PO (09:14)
[2019-05-25] MEDS: CILOSTAZOL 100 MG TAB PO (09:14)
[2019-05-25] MEDS: ZINC SULFATE 220 MG CAP PO (09:14)
[2019-05-25] MEDS: CLOPIDOGREL 75 MG TAB PO (09:14)
[2019-05-25] MEDS: MULTIVIT/CA CARB/B CMPLX/FA TAB PO (09:14)
[2019-05-25] MEDS: LISINOPRIL 20 MG TAB PO (09:15)
[2019-05-25] MEDS: METOPROLOL 100 MG TAB PO (09:15)
[2019-05-25] MEDS: BACLOFEN 10 MG TAB PO ×2 (09:15→12:19)
[2019-05-25] MEDS: DAKINS 0.0125%(1/40) 473 ML SOLUTION TP (09:16)
[2019-05-25] MEDS: EUCERIN 113 GM CR TOP (09:16)
[2019-05-25] MEDS: POVIDONE IODINE 10% 28.4 GM OINT TOP (09:16)
== END 2019-05-25 20:50 | disposition home health service (06) | DRG 617 ==
LOC: E/R 20:30 → 6WM 05-08 15:45 → PP2 05-23 02:40
PROC: 0Y6R0Z0 Detachment at Right 2nd Toe, Complete, Open Approach (ICD-10-PCS; principal; 2019-05-20 12:00)
PROC: 5A1D70Z Performance of Urinary Filtration, Intermittent, Less than 6 Hours Per Day (ICD-10-PCS; 2019-05-20 12:44)
PROC: 5A1D70Z Performance of Urinary Filtration, Intermittent, Less than 6 Hours Per Day (ICD-10-PCS; 2019-05-20 12:44)
PROC: 5A1D70Z Performance of Urinary Filtration, Intermittent, Less than 6 Hours Per Day (ICD-10-PCS; 2019-05-20 12:44)
PROC: 5A1D70Z Performance of Urinary Filtration, Intermittent, Less than 6 Hours Per Day (ICD-10-PCS; 2019-05-20 12:44)
PROC: 5A1D70Z Performance of Urinary Filtration, Intermittent, Less than 6 Hours Per Day (ICD-10-PCS; 2019-05-20 12:44)
PROC: 5A1D70Z Performance of Urinary Filtration, Intermittent, Less than 6 Hours Per Day (ICD-10-PCS; 2019-05-20 12:44)
PROC: 5A1D70Z Performance of Urinary Filtration, Intermittent, Less than 6 Hours Per Day (ICD-10-PCS; 2019-05-20 12:44)
PROC: 5A1D70Z Performance of Urinary Filtration, Intermittent, Less than 6 Hours Per Day (ICD-10-PCS; 2019-05-20 12:44)
PROC: 5A1D70Z Performance of Urinary Filtration, Intermittent, Less than 6 Hours Per Day (ICD-10-PCS; 2019-05-20 12:44)
PROC: 5A1D70Z Performance of Urinary Filtration, Intermittent, Less than 6 Hours Per Day (ICD-10-PCS; 2019-05-20 12:44)
DX: E11.621 Type 2 diabetes mellitus with foot ulcer (principal); I12.0 Hypertensive chronic kidney disease with stage 5 chronic kidney disease or end stage renal disease; L03.115 Cellulitis of right lower limb; L97.516 Non-pressure chronic ulcer of other part of right foot with bone involvement without evidence of necrosis; M86.671 Other chronic osteomyelitis, right ankle and foot; M86.271 Subacute osteomyelitis, right ankle and foot; E11.51 Type 2 diabetes mellitus with diabetic peripheral angiopathy without gangrene; G92 Toxic encephalopathy; N18.6 End stage renal disease; N17.9 Acute kidney failure, unspecified; E11.22 Type 2 diabetes mellitus with diabetic chronic kidney disease; I95.9 Hypotension, unspecified; E87.5 Hyperkalemia; J84.10 Pulmonary fibrosis, unspecified; L97.529 Non-pressure chronic ulcer of other part of left foot with unspecified severity; F01.50 Vascular dementia, unspecified severity, without behavioral disturbance, psychotic disturbance, mood disturbance, and anxiety; E78.5 Hyperlipidemia, unspecified; E87.6 Hypokalemia; D63.1 Anemia in chronic kidney disease; J44.9 Chronic obstructive pulmonary disease, unspecified; F34.1 Dysthymic disorder; E11.628 Type 2 diabetes mellitus with other skin complications; E11.69 Type 2 diabetes mellitus with other specified complication; E11.42 Type 2 diabetes mellitus with diabetic polyneuropathy; E11.622 Type 2 diabetes mellitus with other skin ulcer; Z79.4 Long term (current) use of insulin; Z79.82 Long term (current) use of aspirin; Z99.2 Dependence on renal dialysis; Z87.891 Personal history of nicotine dependence; Z86.73 Personal history of transient ischemic attack (TIA), and cerebral infarction without residual deficits; Z79.02 Long term (current) use of antithrombotics/antiplatelets
CPT/HCPCS: 36415; 36600; 70450; 70551; 71045; 73620; 73630; 74176; 80048; 80053; 80061; 80202; 82140; 82803; 82947; 82962; 83036; 83605; 83690; 83735; 84100; 84484; 85025; 85610; 85730; 86706; 87040-91; 87340; 88305; 88311; 90935; 93005; 93306; 93923; 93970; 95819; 96374; 99285-25

== ENCOUNTER 2019-05-30 22:14 | Emergency (ER) | payer MEDICARE, OTHER ==
[2019-05-30] MEDS: DEXTROSE 50% 50 ML SYRINGE IV (23:29)
[2019-05-30 23:45] LABS: ADD MAN DIFF? NO
[2019-05-30 23:53] LABS: ABNORMAL IP MESSAGE 1; BASOPHILS % 0.6 % (0.0-2.0); EOSINOPHILS % 0.1 % (0.0-7.0); HEMOGLOBIN 9.6 g/dl (14.0-18.0); LYMPHOCYTES # 0.6 10^3/ul (0.8-2.9); LYMPHOCYTES % 8.4 % (15.0-51.0); MEAN CORPUSCULAR HEMOGLOBIN 27.6 pg (29.0-33.0); MEAN CORPUSCULAR VOLUME 86.2 fl (82.0-101.0); MEAN PLATELET VOLUME 11.2 fl (7.4-10.4); MONOCYTE # 0.5 10^3/ul (0.3-0.9); MONOCYTES % 7.5 % (0.0-11.0); NEUTROPHIL # 5.6 10^3/ul (1.6-7.5); PLATELET COUNT 404 10^3/UL (140-415); POSITIVE DIFF @See below; RED BLOOD COUNT 3.48 10^6/ul (4.70-6.10); RED CELL DISTRIBUTION WIDTH 18.5 % (11.5-14.5)
[2019-05-30 23:53] LABS: WHITE BLOOD COUNT 6.8 10^3/ul (4.8-10.8)
[2019-05-31 00:11] LABS: ALANINE AMINOTRANSFERASE 12 IU/L (13-69); ALBUMIN/GLOBULIN RATIO 1.08; ALKALINE PHOSPHATASE 83 IU/L (42-121); ANION GAP 16 (5-13); ASPARTATE AMINO TRANSFERASE 55 IU/L (15-46); BILIRUBIN,INDIRECT 0.4 mg/dl (0-1.1); BILIRUBIN,TOTAL 0.4 mg/dl (0.2-1.3); BLOOD UREA NITROGEN 61 mg/dl (7-20); CALCIUM 8.9 mg/dl (8.4-10.2); CARBON DIOXIDE 31 mmol/L (21-31); CHLORIDE 92 mmol/L (97-110); CREATININE 9.86 mg/dl (0.61-1.24); Estimated GFR 7 mL/min (>60); GLUCOSE 101 mg/dl (70-220); LIPASE 215 U/L (23-300); POTASSIUM 5.6 mmol/L (3.5-5.1); SODIUM 139 mmol/L (135-144); TOTAL PROTEIN 7.7 g/dl (6.1-8.1)
[2019-05-31 00:23] LABS: TROPONIN-I < 0.012 ng/ml (0.000-0.120)
[2019-05-31] MEDS: ALBUTEROL 0.5% (NEB) 2.5 MG/0.5 ML AMP INH (00:58)
== END 2019-05-31 01:37 | disposition home or self-care (01) ==
LOC: E/R 05-31 01:37
DX: E11.649 Type 2 diabetes mellitus with hypoglycemia without coma (principal); E11.22 Type 2 diabetes mellitus with diabetic chronic kidney disease; I12.0 Hypertensive chronic kidney disease with stage 5 chronic kidney disease or end stage renal disease; N18.6 End stage renal disease; E87.5 Hyperkalemia; Z99.2 Dependence on renal dialysis; Z86.73 Personal history of transient ischemic attack (TIA), and cerebral infarction without residual deficits; Z79.82 Long term (current) use of aspirin; Z79.01 Long term (current) use of anticoagulants
CPT/HCPCS: 71045; 80053; 82962; 83690; 84484; 85025; 93005; 94644; 99285-25